=== PATIENT | female | born 1945 | race Two or more races ===

== ENCOUNTER 2021-02-26 15:27 | Emergency (ER) | payer MEDICARE, OTHER ==
[~2021-02-26] VITALS: Ht 167.6 cm; Wt 74.8 kg
[2021-02-26 16:40] LABS: Basophils # (auto) 0.1 10 ^3/uL (0-0.2); Basophils % (auto) 0.9 % (0.0-2.0); Eosinophils # (auto) 0.1 10 ^3/uL (0-0.8); Eosinophils % (auto) 0.9 % (0.0-7.0); Hematocrit 38.4 % (36.0-46.0); Hemoglobin 12.4 g/dL (12.2-16.2); Lymphocytes # (auto) 2.4 10 ^3/uL (0.4-5.4); Lymphocytes % (auto) 31.5 % (10.0-50.0); Mean Corpuscular Hemoglobin 27.3 pg (28.0-32.0); Mean Corpuscular Hgb Conc. 32.2 g/dL (32.0-36.0); Mean Corpuscular Volume 84.7 fL (80.0-100.0); Monocytes # (auto) 0.7 10 ^3/uL (0-1.3); Monocytes % (auto) 8.7 % (0.0-12.0); Neutrophils # (auto) 4.5 10 ^3/uL (1.6-8.6); Red Blood Cells 4.54 10^6/uL (4.0-5.20); Red Cell Distribution Width 17.8 % (11.8-14.3); White Blood Cell 7.7 10^3/uL (4.4-10.8)
[2021-02-26 16:57] LABS: Albumin 3.1 g/dL (3.4-5.0); BUN/Creatinine Ratio 18.7; Calcium 8.7 mg/dL (8.5-10.1); Potassium 3.7 mmol/L (3.5-5.1)
[2021-02-26 17:00] LABS: Bilirubin, Total 0.8 mg/dL (0.2-1.0)
[2021-02-26 18:22] LABS: Urine Bacteria NONE SEEN /hpf (None Seen); Urine Blood Negative /uL (Negative); Urine Specific Gravity 1.004 (1.001-1.035); Urine WBC <1 /hpf (0 - 5)
[2021-02-26] MEDS ORDERED: IOHEXOL 350 MG/ML 100ML IJ ONE (20:53)
[2021-02-26] MEDS ORDERED: hydrALAZINE HCL 20 MG/ML VL IV ONE (21:00)
[2021-02-27] MEDS ORDERED: hydrALAZINE HCL 20 MG/ML VL ONE (01:29)
[2021-02-27] MEDS ORDERED: ESMOLOL HCL-NS 10MG/ML 250 ML IV SCH (01:30)
[2021-02-27] MEDS ORDERED: hydrALAZINE HCL 20 MG/ML VL IV ONE (01:30)
[2021-02-27] MEDS ORDERED: dilTIAZem 125mg/125ml BAG KIT 125 ML IV ONE (02:30)
[2021-02-27 06:02] VITALS: BP 145/56
== END 2021-02-27 06:45 | disposition short-term general hospital (02) ==
LOC: EDBD 15:27 → ER 15:27
DX: S76.219A Strain of adductor muscle, fascia and tendon of unspecified thigh, initial encounter (principal); Z20.822 Contact with and (suspected) exposure to COVID-19; X58.XXXA Exposure to other specified factors, initial encounter; Y93.89 Activity, other specified; Y92.89 Other specified places as the place of occurrence of the external cause; Y99.8 Other external cause status
CPT/HCPCS: 36415; 71275; 74175; 74176; 80053; 81001; 84484; 85025; 86850; 86900; 86901; 87426; 93005; 96365; 96375; 96376; 99285; J0360; J3490; Q9967

== ENCOUNTER 2023-08-26 07:00 | Day surgery (SDC) | payer OTHER ==
[~2023-08-26] VITALS: Ht 152.4 cm; Wt 105.2 kg
[~2023-08-26 07:00] MED LIST: APIX5TAB PO; APOA10CA PO; ASPI81CH74 PO; ATOR40TA52 PO; B-CO1TAB8 PO; DOCU-94 PO; FERR325T24 PO; FLUT1AER3 IN; FURO40TA4 PO; MAGN400T40 PO; METH50006 SL; METO25TA5 PO; METO5TAB5 PO; MIRT-94 PO; MULT-1018 PO; POTA-220 PO; PREG200C19 PO; TRIA-49 PO
[2023-08-26] MEDS ORDERED: LIDOCAINE 2%HCL (LOCAL ANESTH.) INJ 20ML MDV ONE ×2 (07:44→07:46)
[2023-08-26] MEDS ORDERED: IOHEXOL 350 MG/ML 100ML IJ ONE ×2 (07:44→07:46)
[2023-08-26] MEDS ORDERED: HEPARIN IN NS 1000Units/500mL 1,500 ML ONE ×2 (07:45→07:46)
[2023-08-26] MEDS ORDERED: IODIXANOL 320MG/ML 100ML BTL IV ONE (07:45)
[2023-08-26] MEDS ORDERED: ANGIOMAX 250 MG VIAL IV ONE (08:06)
[2023-08-26] MEDS ORDERED: fentaNYL CITRATE 100 MCG/2 ML VL ONE (08:07)
[2023-08-26] MEDS ORDERED: NITROGLYCERIN 50MG/250ML 250 ML IV ONE (08:07)
[2023-08-26] MEDS ORDERED: SODIUM CHL 0.9% 0 ML ONE (08:07)
[2023-08-26] MEDS ORDERED: MIDAZOLAM HCL 2MG/2ML 2ml VIAL (1mg/ml) ONE (08:07)
[2023-08-26] MEDS: ACETAMINOPHEN 500 MG TAB PO ONE ×2 (12:00→12:15)
== END 2023-08-26 12:15 | disposition home or self-care (01) ==
LOC: CATH 07:00
PROVIDERS: ATTEND Internal Medicine Cardiovascular Disease
DX: R06.02 Shortness of breath (principal); I25.10 Atherosclerotic heart disease of native coronary artery without angina pectoris; I12.9 Hypertensive chronic kidney disease with stage 1 through stage 4 chronic kidney disease, or unspecified chronic kidney disease; N18.9 Chronic kidney disease, unspecified; J44.9 Chronic obstructive pulmonary disease, unspecified; G89.4 Chronic pain syndrome; E03.9 Hypothyroidism, unspecified; E78.5 Hyperlipidemia, unspecified; E66.9 Obesity, unspecified; I73.9 Peripheral vascular disease, unspecified; Z86.2 Personal history of diseases of the blood and blood-forming organs and certain disorders involving the immune mechanism; Z86.718 Personal history of other venous thrombosis and embolism; Z79.82 Long term (current) use of aspirin; Z87.891 Personal history of nicotine dependence; Z79.899 Other long term (current) drug therapy; Z98.890 Other specified postprocedural states
CPT/HCPCS: 93460; C1760; C1769; C1887; C1894; J1644; J2250; J3010; J7030; Q9967; 99152; 99153

== ENCOUNTER 2023-11-04 13:02 | Inpatient (IN) | payer OTHER ==
[~2023-11-04] VITALS: Ht 152.4 cm; Wt 107.4 kg
[~2023-11-04 13:02] MED LIST changes: -FLUT1AER3 IN; +FLUT1AER3 INH; +POTA-180 PO
[2023-11-04 13:26] VITALS: RESP 18; O2SAT 95
[2023-11-04 13:41] LABS: Basophils # (auto) 0.1 10 ^3/uL (0-0.2); Basophils % (auto) 0.8 % (0.0-2.0); Eosinophils # (auto) 0.2 10 ^3/uL (0-0.8); Eosinophils % (auto) 1.4 % (0.0-7.0); Hematocrit 31.1 % (36.0-46.0); Lymphocytes # (auto) 2.1 10 ^3/uL (0.4-5.4); Lymphocytes % (auto) 18.7 % (10.0-50.0); Mean Corpuscular Hemoglobin 25.5 pg (28.0-32.0); Mean Corpuscular Hgb Conc. 32.3 g/dL (32.0-36.0); Mean Corpuscular Volume 78.8 fL (80.0-100.0); Monocytes % (auto) 8.8 % (0.0-12.0); Neutrophils # (auto) 7.8 10 ^3/uL (1.6-8.6); Neutrophils % (auto) 70.3 % (37.0-80.0); Red Blood Cells 3.94 10^6/uL (4.0-5.20); Red Cell Distribution Width 20.5 % (11.8-14.3); White Blood Cell 11.1 10^3/uL (4.4-10.8)
[2023-11-04 13:48] LABS: Chloride 99 mmol/L (98-107); Potassium 3.4 mmol/L (3.5-5.1); Sodium 143 mmol/L (136-145)
[2023-11-04 13:49] LABS: Anion Gap 6 (5-15); Calcium 9.4 mg/dL (8.7-10.4); Carbon Dioxide 38 mmol/L (20-30)
[2023-11-04 13:54] LABS: BUN/Creatinine Ratio 32.6 (10.0-20.0); Blood Urea Nitrogen 44 mg/dL (9-23); Glucose 96 mg/dL (74-106)
[2023-11-04] MEDS ORDERED: DEXTROSE (50%) 50ML SYRG IV PRN (14:45)
[2023-11-04] MEDS ORDERED: FUROSEMIDE 20 MG/2 ML VIAL IV ONE (14:45)
[2023-11-04] MEDS ORDERED: DOCUSATE SOD 100 MG CAP PO PRN (14:45)
[2023-11-04] MEDS ORDERED: ACETAMINOPHEN 325 MG TAB PO PRN (14:45)
[2023-11-04] MEDS ORDERED: POTASSIUM CHL 20 Meq TABLET PO ONE (14:45)
[2023-11-04] MEDS ORDERED: NITROGLYCERIN 0.4 MG SL TAB SL PRN ×2 (15:15→15:30)
[2023-11-04] MEDS ORDERED: MORPHINE SULFATE INJ 2 MG/ml SYRG IV PRN (15:15)
[2023-11-04] MEDS ORDERED: ESTR1TAB86 VA (16:04)
[2023-11-04] MEDS ORDERED: PANT1INJ3 PO (16:04)
[2023-11-04] MEDS ORDERED: POTA-36 PO ×2 (16:04)
[2023-11-04] MEDS ORDERED: ACET250T20 PO (16:04)
[2023-11-04] MEDS: FUROSEMIDE 20 MG/2 ML VIAL IV ONE (16:30)
[2023-11-04] MEDS: POTASSIUM CHL 20 Meq TABLET PO ONE (16:31)
[2023-11-04] MEDS: InsuLIN REG 1unit/0.01ml Soln (100units/ml) SC SCH (17:00)
[2023-11-04] MEDS: ACCU-CHEK COMFORT CURVE STRIP VI SCH (17:23)
[2023-11-04] MEDS: ONDANSETRON HCL 4 MG/2 ML VIAL IV PRN (19:50)
[2023-11-04] MEDS: MORPHINE SULFATE INJ 2 MG/ml SYRG IV PRN (19:51)
[2023-11-04 20:00] VITALS: PULSE 53; RESP 17; O2SAT 96
[2023-11-04] MEDS: CARVEDILOL 3.125 MG TAB PO SCH (22:00)
[2023-11-04] MEDS: SODIUM CHLOR 0.9% PF (SALINE LOCK) 10ML VIAL/SYR IV SCH (22:34)
[2023-11-04] MEDS: ATORVASTATIN 20 MG TAB PO SCH (22:34)
[2023-11-04] MEDS ORDERED: ACET500T58 PO (22:42)
[2023-11-04] MEDS ORDERED: METO25TA93 PO (22:42)
[2023-11-04] MEDS ORDERED: FLUT1AER3 IN (22:42)
[2023-11-04] MEDS ORDERED: METH50006 SL (22:42)
[2023-11-04] MEDS ORDERED: MAGN400T40 PO (22:42)
[2023-11-05] MEDS: HYDROcodone-ACET 5/325MG TAB PO PRN (00:32)
[2023-11-05 05:00] VITALS: BP 135/42; PULSE 56; RESP 18; TEMP 98; O2SAT 94
[2023-11-05 06:44] LABS: Urine Bacteria MANY /hpf (None Seen); Urine Blood 2+ /uL (Negative); Urine Clarity Clear (Clear); Urine Color Light-Yellow (Yellow); Urine Mucus FEW (None Seen); Urine Protein, UAD Negative (Negative); Urine Specific Gravity 1.014 (1.001-1.035); Urine Urobilinogen Normal (Negative); Urine WBC 42 /hpf (0 - 5); Urine pH 5.5 (5.0-9.0)
[2023-11-05 08:00] VITALS: PULSE 55
[2023-11-05 08:54] VITALS: BP 146/90; PULSE 56; RESP 20; TEMP 98.2; O2SAT 92
[2023-11-05] MEDS: ASPirin 81 mg TAB PO SCH (10:08)
[2023-11-05] MEDS: MULTIPLE VITAMIN TAB PO SCH (10:08)
[2023-11-05] MEDS: cefTRIAXone 1GM/50ML D5W 50 ML IV SCH (10:09)
[2023-11-05] MEDS: FUROSEMIDE 20 MG/2 ML VIAL IV SCH (10:16)
[2023-11-05] MEDS ORDERED: ESTRADIOL VAGINAL 10 MCG PV PRN (11:15)
[2023-11-05] MEDS ORDERED: SEMA2INJ3 SC (11:27)
[2023-11-05 13:00] VITALS: BP 147/35; PULSE 58; RESP 18; TEMP 98.5; O2SAT 93
[2023-11-05 17:00] VITALS: BP 144/66; PULSE 72; RESP 20; TEMP 99.5; O2SAT 90
[2023-11-05] MEDS: MIRTAZAPINE 30 MG TAB PO SCH (18:39)
[2023-11-05 21:00] VITALS: BP 158/58; PULSE 73; RESP 16; TEMP 98.3; O2SAT 93
[2023-11-05] MEDS: APIXABAN 5 MG TAB PO SCH (21:18)
[2023-11-05] MEDS: FUROSEMIDE 40 MG TAB PO SCH (21:19)
[2023-11-05] MEDS: PREGABALIN CAPSULE 75 MG CAP PO SCH (21:44)
[2023-11-05] MEDS: POTASSIUM CHL 20 Meq TABLET PO SCH (21:44)
[2023-11-05] MEDS: Triazolam 0.25 MG PO SCH (21:49)
[2023-11-05] MEDS ORDERED: ATORVASTATIN 20 MG TAB PO SCH (22:00)
[2023-11-05] MEDS ORDERED: MAGNESIUM OXIDE 400 MG TAB PO SCH (22:00)
[2023-11-06] VITALS (8 sets, daily range): BP systolic 128–149; BP diastolic 37–63; PULSE 58–108; RESP 14–19; TEMP 97.9–99.1; O2SAT 91–98
[2023-11-06] MEDS: PANTOPRAZOLE 40 MG TAB PO SCH (05:54)
[2023-11-06 06:18] LABS: Alanine Aminotransferase 29 U/L (7-40); Alkaline Phosphatase 143 U/L (46-116); Anion Gap 8 (5-15); BUN/Creatinine Ratio 28.1 (10.0-20.0); Blood Urea Nitrogen 43 mg/dL (9-23); Calcium 9.6 mg/dL (8.7-10.4); Carbon Dioxide 37 mmol/L (20-30); Chloride 97 mmol/L (98-107); Glucose 139 mg/dL (74-106); Potassium 3.1 mmol/L (3.5-5.1); Sodium 142 mmol/L (136-145)
[2023-11-06 06:19] LABS: Albumin 3.7 g/dL (3.2-4.8); Aspartate Aminotransferase 36 U/L (13-40); Bilirubin, Total 0.6 mg/dL (0.2-1.0); Total Protein 6.5 g/dL (5.7-8.2)
[2023-11-06] MEDS: POTASSIUM EFFERVESENT TAB 25 MEQ GT ONE (06:45)
[2023-11-06] MEDS ORDERED: ASPirin 81 mg TAB PO SCH (10:00)
[2023-11-06] MEDS: APOAEQUORIN 10 MG PO SCH (10:00)
[2023-11-06] MEDS ORDERED: METOPROLOL SUCCINATE XL 50 MG TAB PO SCH (10:00)
[2023-11-06] MEDS ORDERED: BIOTIN PO SCH (10:00)
[2023-11-06] MEDS ORDERED: B COMPLEX PO SCH (10:00)
[2023-11-06] MEDS ORDERED: metOLazone 5 MG TAB PO SCH (10:00)
[2023-11-06] MEDS ORDERED: FOLIC ACI PO SCH (10:00)
[2023-11-06] MEDS ORDERED: OXYCODONE W/ ACETAMINOPHEN 5/325MG TABLET PO PRN (11:15)
[2023-11-06] MEDS: MAGNESIUM OXIDE 400 MG TAB PO SCH (11:42)
[2023-11-06] MEDS: MULTIPLE VITAMIN TAB PO SCH (11:43)
[2023-11-06] MEDS: METOPROLOL SUCCINATE XL 50 MG TAB PO ONE (12:37)
[2023-11-06] MEDS: OXYCODONE W/ ACETAMINOPHEN 5/325MG TABLET PO PRN (17:59)
[2023-11-06 22:16] LABS: Basophils # (auto) 0.1 10 ^3/uL (0-0.2); Eosinophils # (auto) 0.1 10 ^3/uL (0-0.8); Eosinophils % (auto) 0.7 % (0.0-7.0); Hemoglobin 9.5 g/dL (12.2-16.2); Lymphocytes % (auto) 14.8 % (10.0-50.0); Nucleated Red Blood Cells % 0.1 %
[2023-11-06 22:17] LABS: Basophils % (auto) 0.6 % (0.0-2.0); Hematocrit 28.7 % (36.0-46.0); Mean Corpuscular Hemoglobin 25.7 pg (28.0-32.0); Mean Corpuscular Hgb Conc. 33.1 g/dL (32.0-36.0); Mean Corpuscular Volume 77.7 fL (80.0-100.0); Monocytes # (auto) 1.2 10 ^3/uL (0-1.3); Monocytes % (auto) 9.2 % (0.0-12.0); Neutrophils # (auto) 9.9 10 ^3/uL (1.6-8.6); Neutrophils % (auto) 74.7 % (37.0-80.0); Red Cell Distribution Width 19.8 % (11.8-14.3); White Blood Cell 13.3 10^3/uL (4.4-10.8)
[2023-11-06 22:27] LABS: Chloride 94 mmol/L (98-107); Potassium 3.4 mmol/L (3.5-5.1); Sodium 136 mmol/L (136-145)
[2023-11-06 22:28] LABS: Anion Gap 5 (5-15); Calcium 9.4 mg/dL (8.7-10.4); Carbon Dioxide 37 mmol/L (20-30)
[2023-11-06 22:33] LABS: BUN/Creatinine Ratio 29.9 (10.0-20.0); Blood Urea Nitrogen 49 mg/dL (9-23); Glucose 166 mg/dL (74-106)
[2023-11-07] VITALS (8 sets, daily range): BP systolic 134–161; BP diastolic 31–55; PULSE 57–62; RESP 16–20; TEMP 97.8–99.6; O2SAT 93–96
[2023-11-07 08:45] LABS: Basophils # (auto) 0.1 10 ^3/uL (0-0.2); Eosinophils # (auto) 0.1 10 ^3/uL (0-0.8); Eosinophils % (auto) 0.9 % (0.0-7.0); Hemoglobin 9.7 g/dL (12.2-16.2); Lymphocytes # (auto) 1.9 10 ^3/uL (0.4-5.4); Lymphocytes % (auto) 13.6 % (10.0-50.0); Mean Corpuscular Hgb Conc. 33.3 g/dL (32.0-36.0); Monocytes # (auto) 1.2 10 ^3/uL (0-1.3); Monocytes % (auto) 8.6 % (0.0-12.0); Neutrophils # (auto) 10.3 10 ^3/uL (1.6-8.6); Neutrophils % (auto) 75.9 % (37.0-80.0); Red Blood Cells 3.72 10^6/uL (4.0-5.20); White Blood Cell 13.6 10^3/uL (4.4-10.8)
[2023-11-07 08:46] LABS: Red Cell Distribution Width 20.2 % (11.8-14.3)
[2023-11-07 09:03] LABS: Alanine Aminotransferase 32 U/L (7-40); Albumin 3.7 g/dL (3.2-4.8); Alkaline Phosphatase 135 U/L (46-116); Anion Gap 5 (5-15); Aspartate Aminotransferase 34 U/L (13-40); BUN/Creatinine Ratio 32.1 (10.0-20.0); Bilirubin, Total 0.5 mg/dL (0.2-1.0); Blood Urea Nitrogen 50 mg/dL (9-23); Calcium 9.4 mg/dL (8.7-10.4); Carbon Dioxide 36 mmol/L (20-30); Chloride 94 mmol/L (98-107); Glucose 152 mg/dL (74-106); Potassium 3.4 mmol/L (3.5-5.1); Sodium 135 mmol/L (136-145); Total Protein 6.7 g/dL (5.7-8.2)
[2023-11-07] MEDS: DOCUSATE SOD 100 MG CAP PO SCH (09:15)
[2023-11-07] MEDS: METOPROLOL SUCCINATE XL 50 MG TAB PO SCH (09:15)
[2023-11-07] MEDS: FERROUS SULFATE 325mg EC TAB PO SCH (09:16)
[2023-11-07] MEDS: CYCLOBENZAPRINE HCL 10 MG TAB PO PRN (09:16)
[2023-11-07] MEDS ORDERED: FUROSEMIDE 40 MG/4 ML VIAL IV ONE (14:45)
[2023-11-07] MEDS: POTASSIUM EFFERVESENT TAB 25 MEQ PO ONE (19:14)
[2023-11-08] VITALS (8 sets, daily range): BP systolic 133–156; BP diastolic 33–57; PULSE 51–63; RESP 17–19; TEMP 97.6–98.8; O2SAT 92–95
[2023-11-08 00:28] LABS: Sodium Urine < 10 mmol/L (40-220)
[2023-11-08 00:33] LABS: Protein, Urine 42.5 mg/dL (0.0-11.9)
[2023-11-08 00:34] LABS: Urine Bacteria FEW /hpf (None Seen); Urine Blood 2+ /uL (Negative); Urine Clarity Clear (Clear); Urine Color Light-Yellow (Yellow); Urine Hyaline Cast FEW /lpf (0 - 2); Urine Protein, UAD TRACE (Negative); Urine Specific Gravity 1.014 (1.001-1.035); Urine Urobilinogen Normal (Negative); Urine WBC 11 /hpf (0 - 5); Urine pH 5.5 (5.0-9.0)
[2023-11-08 00:35] LABS: Creatinine, Urine 82.97 mg/dL (30.0-125.0)
[2023-11-08 06:09] LABS: Anion Gap 5 (5-15); Carbon Dioxide 36 mmol/L (20-30); Chloride 94 mmol/L (98-107); Potassium 3.4 mmol/L (3.5-5.1); Sodium 135 mmol/L (136-145)
[2023-11-08 06:10] LABS: Calcium 9.4 mg/dL (8.7-10.4)
[2023-11-08 06:15] LABS: Blood Urea Nitrogen 51 mg/dL (9-23); Glucose 112 mg/dL (74-106)
[2023-11-08 06:17] LABS: Phosphorus 4.1 mg/dL (2.4-5.1)
[2023-11-08 07:11] LABS: Uric Acid 14.1 mg/dL (3.1-7.8)
[2023-11-08] MEDS: FUROSEMIDE 40 MG/4 ML VIAL IV SCH (10:20)
[2023-11-08] MEDS: POTASSIUM CHLORIDE 40 MEQ, LIDOCAINE 1% (LOCAL ANESTH.) 4 ML in SODIUM CHL 0.9% 250 ML IV ONE (13:58)
[2023-11-08] MEDS: HYDROcodone-ACET 5/325MG TAB PO PRN (17:31)
[2023-11-08] MEDS: MIRTAZAPINE 30 MG TAB PO SCH (20:47)
[2023-11-08] MEDS: OXYCODONE W/ ACETAMINOPHEN 5/325MG TABLET PO SCH (21:30)
[2023-11-08] MEDS: FLEET ENEMA(ADULT) 135 ML PR ONE (21:31)
[2023-11-08 21:52] LABS: Urine Bacteria FEW /hpf (None Seen); Urine Blood 2+ /uL (Negative); Urine Clarity Clear (Clear); Urine Color Light-Yellow (Yellow); Urine Protein, UAD TRACE (Negative); Urine Specific Gravity 1.014 (1.001-1.035); Urine Urobilinogen Normal (Negative); Urine WBC 6 /hpf (0 - 5); Urine pH 5.5 (5.0-9.0)
[2023-11-08 21:59] LABS: Sodium Urine < 10 mmol/L (40-220)
[2023-11-08 22:03] LABS: Protein, Urine 45.1 mg/dL (0.0-11.9)
[2023-11-08 22:06] LABS: Creatinine, Urine 71.49 mg/dL (30.0-125.0)
[2023-11-09] VITALS (8 sets, daily range): BP systolic 120–169; BP diastolic 32–44; PULSE 57–60; RESP 16–19; TEMP 97.9–98.4; O2SAT 90–95
[2023-11-09 06:09] LABS: Basophils # (auto) 0.1 10 ^3/uL (0-0.2); Eosinophils # (auto) 0.2 10 ^3/uL (0-0.8); Eosinophils % (auto) 1.8 % (0.0-7.0); Lymphocytes % (auto) 14.3 % (10.0-50.0); Nucleated Red Blood Cells % 0.1 %
[2023-11-09 06:11] LABS: Basophils % (auto) 0.7 % (0.0-2.0); Hematocrit 29.6 % (36.0-46.0); Hemoglobin 9.6 g/dL (12.2-16.2); Lymphocytes # (auto) 1.4 10 ^3/uL (0.4-5.4); Mean Corpuscular Hemoglobin 25.3 pg (28.0-32.0); Mean Corpuscular Hgb Conc. 32.5 g/dL (32.0-36.0); Mean Corpuscular Volume 77.8 fL (80.0-100.0); Monocytes % (auto) 10.1 % (0.0-12.0); Neutrophils # (auto) 7.1 10 ^3/uL (1.6-8.6); Neutrophils % (auto) 73.1 % (37.0-80.0); Red Blood Cells 3.81 10^6/uL (4.0-5.20); Red Cell Distribution Width 19.7 % (11.8-14.3); White Blood Cell 9.7 10^3/uL (4.4-10.8)
[2023-11-09 06:17] LABS: Anion Gap 8 (5-15); Calcium 9.4 mg/dL (8.7-10.4); Carbon Dioxide 35 mmol/L (20-30); Chloride 94 mmol/L (98-107); Potassium 3.4 mmol/L (3.5-5.1); Sodium 137 mmol/L (136-145)
[2023-11-09 06:22] LABS: Uric Acid 13.9 mg/dL (3.1-7.8)
[2023-11-09 06:23] LABS: BUN/Creatinine Ratio 37.5 (10.0-20.0); Blood Urea Nitrogen 48 mg/dL (9-23); Glucose 110 mg/dL (74-106)
[2023-11-09 06:25] LABS: Phosphorus 5.4 mg/dL (2.4-5.1)
[2023-11-09] MEDS ORDERED: IOHEXOL 350 MG/ML 100ML IJ ONE (10:20)
[2023-11-10] VITALS (8 sets, daily range): BP systolic 111–133; BP diastolic 30–48; PULSE 53–59; RESP 18–20; TEMP 97.9–98.8; O2SAT 90–96
[2023-11-10 07:17] LABS: Basophils # (auto) 0.1 10 ^3/uL (0-0.2); Basophils % (auto) 0.9 % (0.0-2.0); Eosinophils # (auto) 0.2 10 ^3/uL (0-0.8); Eosinophils % (auto) 2.5 % (0.0-7.0); Hematocrit 27.4 % (36.0-46.0); Hemoglobin 8.9 g/dL (12.2-16.2); Lymphocytes # (auto) 1.5 10 ^3/uL (0.4-5.4); Lymphocytes % (auto) 15.5 % (10.0-50.0); Mean Corpuscular Hemoglobin 25.5 pg (28.0-32.0); Mean Corpuscular Hgb Conc. 32.6 g/dL (32.0-36.0); Monocytes # (auto) 0.9 10 ^3/uL (0-1.3); Monocytes % (auto) 8.9 % (0.0-12.0); Neutrophils # (auto) 6.9 10 ^3/uL (1.6-8.6); Neutrophils % (auto) 72.2 % (37.0-80.0); Nucleated Red Blood Cells % 0.1 %; Red Blood Cells 3.52 10^6/uL (4.0-5.20); Red Cell Distribution Width 19.6 % (11.8-14.3); White Blood Cell 9.6 10^3/uL (4.4-10.8)
[2023-11-10 07:53] LABS: Chloride 97 mmol/L (98-107); Potassium 3.5 mmol/L (3.5-5.1); Sodium 136 mmol/L (136-145)
[2023-11-10 07:54] LABS: Anion Gap 3 (5-15); Carbon Dioxide 36 mmol/L (20-30)
[2023-11-10 07:55] LABS: Calcium 9.5 mg/dL (8.7-10.4)
[2023-11-10 07:59] LABS: Glucose 109 mg/dL (74-106)
[2023-11-10 08:00] LABS: BUN/Creatinine Ratio 36.9 (10.0-20.0); Blood Urea Nitrogen 52 mg/dL (9-23)
[2023-11-10] MEDS: ALLOPURINOL 100 MG TAB PO ONE (17:32)
[2023-11-11] VITALS (7 sets, daily range): BP systolic 108–150; BP diastolic 51–85; PULSE 51–81; RESP 16–20; TEMP 97.7–98.4; O2SAT 90–99
[2023-11-11 06:59] LABS: Magnesium 2.5 mg/dL (1.6-2.6); Phosphorus 4.4 mg/dL (2.4-5.1)
[2023-11-11 07:49] LABS: Alanine Aminotransferase 41 U/L (7-40); Albumin 3.1 g/dL (3.2-4.8); Alkaline Phosphatase 181 U/L (46-116); Anion Gap 4 (5-15); Aspartate Aminotransferase 39 U/L (13-40); BUN/Creatinine Ratio 44.8 (10.0-20.0); Bilirubin, Total 0.2 mg/dL (0.2-1.0); Calcium 9.1 mg/dL (8.7-10.4); Carbon Dioxide 35 mmol/L (20-30); Chloride 98 mmol/L (98-107); Glucose 104 mg/dL (74-106); Sodium 137 mmol/L (136-145); Total Protein 5.4 g/dL (5.7-8.2)
[2023-11-11 07:50] LABS: Blood Urea Nitrogen 65 mg/dL (9-23)
[2023-11-11] MEDS: ALLOPURINOL 100 MG TAB PO SCH (08:39)
[2023-11-11] MEDS: amLODIPine BESYLATE 5 MG TAB PO SCH (11:48)
== END 2023-11-11 17:30 | DRG 291 ==
LOC: ER 13:02 → EDBD 13:02 → ER 15:14 → TELE 15:14 → TELE-WESTW 22:10
PROVIDERS: ADMIT Internal Medicine Geriatric Medicine; ATTEND Internal Medicine Geriatric Medicine
DX: I13.0 Hypertensive heart and chronic kidney disease with heart failure and stage 1 through stage 4 chronic kidney disease, or unspecified chronic kidney disease (principal); I50.33 Acute on chronic diastolic (congestive) heart failure; N39.0 Urinary tract infection, site not specified; Z68.41 Body mass index [BMI] 40.0-44.9, adult; J98.11 Atelectasis; N17.9 Acute kidney failure, unspecified; M16.0 Bilateral primary osteoarthritis of hip; D64.9 Anemia, unspecified; E87.6 Hypokalemia; D72.829 Elevated white blood cell count, unspecified; E66.01 Morbid (severe) obesity due to excess calories; N31.9 Neuromuscular dysfunction of bladder, unspecified; M51.36 Other intervertebral disc degeneration, lumbar region; J44.9 Chronic obstructive pulmonary disease, unspecified; E11.51 Type 2 diabetes mellitus with diabetic peripheral angiopathy without gangrene; E78.5 Hyperlipidemia, unspecified; E03.9 Hypothyroidism, unspecified; G89.4 Chronic pain syndrome; I25.10 Atherosclerotic heart disease of native coronary artery without angina pectoris; E11.22 Type 2 diabetes mellitus with diabetic chronic kidney disease; N18.32 Chronic kidney disease, stage 3b; I27.20 Pulmonary hypertension, unspecified; E79.0 Hyperuricemia without signs of inflammatory arthritis and tophaceous disease; Z79.899 Other long term (current) drug therapy; Z79.85 Long-term (current) use of injectable non-insulin antidiabetic drugs; Z79.01 Long term (current) use of anticoagulants; Z86.718 Personal history of other venous thrombosis and embolism
CPT/HCPCS: 36415; 71045; 71275; 72131; 73502; 80048; 80053; 81001; 82306; 82570; 82962; 83036; 83735; 83880; 84100; 84156; 84300; 84484; 84550; 85025; 85379; 87086; 93306; 93970; 96374; 96375; 97163; G0378; J2001; J2405

== ENCOUNTER 2024-08-13 11:08 | Inpatient (IN) | payer OTHER ==
[~2024-08-13] VITALS: Ht 152.4 cm; Wt 97.7 kg
[~2024-08-13 11:08] MED LIST changes: +ACET500T58 PO; +ESTR1TAB86 VA; -METO25TA5 PO; +METO25TA93 PO; +PANT1INJ3 PO; -POTA-220 PO; +SEMA2INJ3 SC
[2024-08-13 13:36] VITALS: PULSE 47; RESP 20; O2SAT 93
--- NOTE | 2024-08-13 13:50 | ED.PDOC ---
Epistaxis- HPI HPI Comments 78 y/o F, with PMHx of gout, HLD, DM, HTN, and CHF presents to the ED for CC of uncontrolled epistaxis. Patient states, that she has been bleeding from her right nare since, 0900 today (08/13/24). Patient reports, that she spoke to her director of audiology regarding symptoms and was instructed to follow up to the ED for a further evaluation due, to currently being on Eliquis. Upon arrival to the ED, patient is bradycardic. Patient denies current active bleeding, headache, fever, or chills. No other symptoms or modifying factors present at this time. Chief Complaint: Nose Bleed Time Seen by MD: 12:30 Reviewed Notes: Nurses Notes, Medications, Allergies Allergies: Coded Allergies: UNOBTAINABLE (Unverified , 08/13/24) Home Meds Reported Medications Semaglutide (Ozempic) 2 Mg/3 Ml Inj, MG SC UD Inject 0.25 mg subcutaneously every week for 4 weeks, then increase to 0.5 mg every week for 4 weeks. 11/05/23 Potassium Chloride (Potassium Chloride ER) 20 Meq Tab, MEQ PO UD Take 1 tablet by mouth in the morning, 2 tablets by mouth in the afternoon, and 1 tablet by mouth in the evening. 11/05/23 Acetaminophen (Acetaminophen) 500 Mg Tab, 500 MG PO Q6HPRN PRN for PAIN SCALE 1 THRU 6, TAB 11/04/23 Metoprolol Succinate (Metoprolol Succinate Er) 25 Mg Tab, 1 TAB PO DAILY, #30 TAB 5 Refills 11/04/23 Mecobalamin (B12) 5,000 Mcg Sub, 5000 MCG SL, INJ 11/04/23 Estradiol Vaginal (Yuvafem) 10 Mcg Tab, 10 MCG VA MT PRN for 2XWEEK, TAB 11/04/23 Pantoprazole Sodium (PANTOPRAZOLE SODIUM) 40 Mg Inj, 40 MG PO DAILY, INJ 11/04/23 Atorvastatin Calcium (ATORVASTATIN CALCIUM) 40 Mg Tab, 1 TAB PO QPM, #90 TAB 3 Refills 08/22/23 Multiple Vitamin (Multivitamins) Tab, 1 TAB PO DAILY, #90 TAB 3 Refills 08/22/23 B-Complex W/Biotin & Folic Aci (Super B-Complex) 1 Tab Tab, 1 TAB PO DAILY, TAB 08/22/23 Apoaequorin (PREVAGEN) 10 Mg Cap, 10 MG PO DAILY, CAP 08/22/23 Mirtazapine (REMERON) 30 Mg Tab, 1 TAB PO QPM, #30 TAB 1 Refill 08/22/23 Triazolam (Triazolam) 0.25 Mg Tab, 0.25 MG PO HS, TAB 08/22/23 Ferrous Sulfate (Ferrous Sulfate) 325 Mg Tab, 325 MG PO MWF for 30 Days 08/22/23 Docusate Sodium (Colace) 100 Mg Cap, 100 MG PO MWF, CAP 08/22/23 Magnesium Oxide (MAGNESIUM OXIDE) 400 Mg Tab, 1 TAB PO DAILY, #30 TAB 5 Refills 08/22/23 Apixaban Base (ELIQUIS) 5 Mg Tab, 5 MG PO BID, TAB 08/22/23 Xkvokmmobog-Jhstkezpblqq-Btxxv (Trelegy Ellipta 100-62.5-25 Mcg/INH) 1 Aer Aer, 1 PUFF INH DAILY 08/22/23 Metolazone (Metolazone) 5 Mg Tab, 5 MG PO DAILY, TAB 08/22/23 Furosemide (Furosemide) 40 Mg Tab, 40 MG PO BID for 30 Days 08/22/23 Aspirin (Aspirin 81 Low Dose) 81 Mg Chw, 81 MG PO DAILY, TAB.CHEW 08/22/23 Pregabalin (Lyrica) 200 Mg Cap, 1 CAP PO BID, #60 CAP 08/22/23 Information Source: Patient, Significant Other Mode of Arrival: Ambulatory Severity: Bleeding Controlled Timing: Hours Duration: Since onset Prehospital treatment: None Location: Right naris Mechanism: Spontaneous onset Circumstances: Unknown Use of: None History of: HTN Last Tetanus: Unknown Nose: Normal Bleeding Status: No active bleeding Bleeding Amount: Mild Associated signs and symptoms: None Past Medical History PAST MEDICAL HISTORY: CHF, DM, Gout, High Lipids, HTN Surgical History: Denies all surgeries RIB CLOTH KNITTER History: No Pertinent RIB CLOTH KNITTER History Family History Family History: Reviewed,noncontributory to illness Social History Smoker: Non-Smoker Alcohol: Denies ETOH Use Drugs: Denies Drug Use Lives In: Home Constitutional: reports: chills, diaphoresis, fatigue, fever, malaise, sweats, weakness, others EENTM: reports: nose bleeding; denies: blurred vision, double vision, ear bleeding, ear discharge, ear drainage, ear pain, ear ringing, eye pain, eye redness, hearing loss, mouth pain, mouth swelling, nasal discharge, nose congestion, nose pain, photophobia, tearing, throat pain, throat swelling, voice changes, others Respiratory: denies: cough, hemoptysis, orthopnea, SOB at rest, shortness of breath, SOB with excertion, stridor, wheezing, others Cardiovascular: denies: chest pain, dizzy spells, diaphoresis, Dyspnea on exertion, edema, irregular heart beat, left arm pain, lightheadedness, palpitations, PND, syncope, others Gastrointestinal: denies: abdomen distended, abdominal pain, blood streaked bowels, constipated, diarrhea, dysphagia, difficulty swallowing, hematemesis, melena, nausea, poor appetite, poor fluid intake, rectal bleeding, rectal pain, vomiting, others Genitourinary: denies: abnormal vagina bleeding, burning, dyspareunia, dysuria, flank pain, frequency, hematuria, incontinence, pain, , vagina discharge, urgency, others Neurological: denies: dizziness, fainting, headache, left sided numbness, left sided weakness, numbness, paresthesia, pre-existing deficit, right sided numbness, right sided weakness, seizure, speech problems, tingling, tremors, weakness, others Musculoskeletal: denies: back pain, gout, joint pain, joint swelling, muscle pain, muscle stiffness, neck pain, others Integumetry: denies: bruises, change in color, change in hair/nails, dryness, laceration, lesions, lumps, rash, wounds, others Allergic/Immunocompromised: denies: Difficulty Healing, Frequent Infections, Hives, Itching, others Hematologic/Lymphatic: denies: anemia, blood clots, easy bleeding, easy bruising, swollen glands, others Endocrine: denies: excessive hunger, excessive sweating, excessive thirst, excessive urination, flushing, intolerance to cold, intolerance to heat, unexplained weight gain, unexplained weight loss, others Psychiatric: denies: anxiety, bipolar disorder, depression, hopeless, panic disorder, schizophrenia, sleepless, suicidal, others All Other Systems: Reviewed and Negative Physical Exam General Appearance: Moderate Distress HEENT: Normal ENT Inspection, Pharynx Normal, TMs Normal Neck: Full Range of Motion, Non-Tender, Normal, Normal Inspection Respiratory: Chest Non-Tender, Lungs Clear, No Accessory Muscle Use, No Respiratory Distress, Normal Breath Sounds Cardiovascular: Bradycardia, No Edema, No JVD, No Murmur, No Gallop, Normal Peripheral Pulses Breast Exam: Deferred Gastrointestinal: No Organomegaly, Non Tender, No Pulsatile Mass, Normal Bowel Sounds, Soft Genitalia: Deferred Pelvic: Deferred Rectal: Deferred Extremities: No calf tenderness, Normal capillary refill, Normal inspection, Normal range of motion, Non-tender, No pedal edema Musculoskeletal : Apperance: Normal Neurologic: Alert, jute bag clipper II-XII nml as Tested, No Motor Deficits, Normal Affect, Normal Mood, No Sensory Deficits Cerebellar Function: NOT DONE Reflexes: NOT DONE Skin: Dry, Normal Color, Warm Peripheral Pulses: 3+ Radial (R), 3+ Radial (L) Lymphatic: No Adenopathy Was a procedure done? Was a procedure done?: No Differential Diagnosis (NSB) Differential Diagnosis: Anterior Nasal Bleed, Posterior Nasal Bleed X-Ray, Labs, Meds, VS Vital Signs Date Time Temp Pulse Resp B/P (MAP) Pulse Ox O2 Delivery O2 Flow Rate FiO2 08/13/24 16:00 97.8 49 18 128/41 (70) 94 97.8 08/13/24 14:00 49 18 133/40 (71) 98 08/13/24 13:46 93 Simple Mask* 6 50 08/13/24 13:36 47 20 93 Simple Mask* 6 50 08/13/24 13:18 46 08/13/24 13:00 48 18 127/41 (69) 95 08/13/24 12:06 Simple Mask* 6 50 08/13/24 12:00 97.7 50 18 126/41 (69) 93 97.7 08/13/24 11:40 98.1 50 18 113/40 (64) 87 98.1 Lab Test 08/13/24 15:09 08/13/24 13:54 Range/Units Troponin I High Sensitivity 6 6 </=34 ng/L White Blood Count 8.1 4.4-10.8 10^3/uL Red Blood Count 4.06 4.0-5.20 10^6/uL Hemoglobin 10.6 L 12.2-16.2 g/dL Hematocrit 32.0 L 36.0-46.0 % Mean Corpuscular Volume 78.9 L 80.0-100.0 fL Mean Corpuscular Hemoglobin 26.1 L 28.0-32.0 pg Mean Corpuscular Hemoglobin Concent 33.0 32.0-36.0 g/dL Red Cell Distribution Width 22.0 H 11.8-14.3 % Platelet Count 290 140-450 10^3/uL Mean Platelet Volume 6.8 L 6.9-10.8 fL Neutrophils (%) (Auto) 66.2 37.0-80.0 % Lymphocytes (%) (Auto) 22.5 10.0-50.0 % Monocytes (%) (Auto) 7.8 0.0-12.0 % Eosinophils (%) (Auto) 2.3 0.0-7.0 % Basophils (%) (Auto) 1.2 0.0-2.0 % Neutrophils # (Auto) 5.3 1.6-8.6 10 ^3/uL Lymphocytes # (Auto) 1.8 0.4-5.4 10 ^3/uL Monocytes # (Auto) 0.6 0-1.3 10 ^3/uL Eosinophils # (Auto) 0.2 0-0.8 10 ^3/uL Basophils # (Auto) 0.1 0-0.2 10 ^3/uL Nucleated Red Blood Cells 0.0 % Prothrombin Time 11.9 H 9.3-11.8 sec Prothrombin Time INR 1.14 0.9-1.15 Activated Partial Thromboplast Time 35.0 H 24.5-34.5 SEC Sodium Level 144 136-145 mmol/L Potassium Level 3.2 L 3.5-5.1 mmol/L Chloride Level 101 98-107 mmol/L Carbon Dioxide Level 35 H 20-31 mmol/L Anion Gap 8 5-15 Blood Urea Nitrogen 48 H 9-23 mg/dL Creatinine 1.42 H 0.550-1.02 mg/dL Glomerular Filtration Rate Calc 37 >90 mL/min BUN/Creatinine Ratio 33.8 H 10.0-20.0 Serum Glucose 94 74-106 mg/dL Calcium Level 10.2 8.7-10.4 mg/dL Patient alert. Complaining of nosebleed. She is on blood thinner. Answering questions. Bradycardia. Mild anemia. Cardiac marker within normal limits. Cardiology consultation. Potassium was given. Reviewed her history. Explained to the family. Continue monitoring. Time of 1ST Reevaluation: 13:00 Reevaluation 1ST: Unchanged Patient Education/Counseling: Diagnosis, Treatment Family Education/Counseling: No Family Present Departure 1 Departure Time of Disposition: 16:53 Impression: Primary Impression: Bradycardia Additional Impression: Epistaxis Disposition: ADMITTED INPATIENT Admit to: Med Surg Condition: Guarded Critical Care Note Critical Care Time?: No Stability Stability form required: No Heart Score Heart Score: Heart Score Response (Comments) Value History Slightly Suspicious 0 EKG Normal 0 Age >65 2 Risk Factors >3 or Hx ASHD 2 Troponin Normal limit 0 Total 4 I personally scribed for ZEINA GONZALEZ MD ([email or web address]) on 08/13/24 at 13:50. Electronically submitted by Jenny Eric [email or web address]). ZEINA GONZALEZ MD August 13, 2024 13:50
[2024-08-13 14:08] LABS: Basophils # (auto) 0.1 10 ^3/uL (0-0.2); Basophils % (auto) 1.2 % (0.0-2.0); Eosinophils # (auto) 0.2 10 ^3/uL (0-0.8); Mean Corpuscular Volume 78.9 fL (80.0-100.0); Monocytes # (auto) 0.6 10 ^3/uL (0-1.3); Neutrophils # (auto) 5.3 10 ^3/uL (1.6-8.6); White Blood Cell 8.1 10^3/uL (4.4-10.8)
[2024-08-13 14:10] LABS: Eosinophils % (auto) 2.3 % (0.0-7.0); Hemoglobin 10.6 g/dL (12.2-16.2); Lymphocytes # (auto) 1.8 10 ^3/uL (0.4-5.4); Lymphocytes % (auto) 22.5 % (10.0-50.0); Mean Corpuscular Hemoglobin 26.1 pg (28.0-32.0); Monocytes % (auto) 7.8 % (0.0-12.0); Neutrophils % (auto) 66.2 % (37.0-80.0); Platelet Count (auto) 290 10^3/uL (140-450); Red Blood Cells 4.06 10^6/uL (4.0-5.20)
[2024-08-13 14:16] LABS: Chloride 101 mmol/L (98-107); Sodium 144 mmol/L (136-145)
[2024-08-13 14:17] LABS: Anion Gap 8 (5-15); Calcium 10.2 mg/dL (8.7-10.4)
[2024-08-13 14:21] LABS: Carbon Dioxide 35 mmol/L (20-31); Potassium 3.2 mmol/L (3.5-5.1)
[2024-08-13 14:22] LABS: BUN/Creatinine Ratio 33.8 (10.0-20.0); Glucose 94 mg/dL (74-106)
[2024-08-13 14:23] LABS: INR 1.14 (0.9-1.15); Prothrombin Time 11.9 sec (9.3-11.8)
[2024-08-13 14:26] LABS: Blood Urea Nitrogen 48 mg/dL (9-23)
[2024-08-13] MEDS: POTASSIUM EFFERVESENT TAB 25 MEQ PO ONE (17:00)
[2024-08-13 19:00] LABS: Urine Bacteria None Seen /hpf (None Seen)
[2024-08-13 19:16] LABS: Urine Blood Negative /uL (Negative); Urine Clarity Turbid (Clear); Urine Color Light-Yellow (Yellow); Urine Hyaline Cast FEW /lpf (0 - 2); Urine Protein, UAD Negative (Negative); Urine Specific Gravity 1.008 (1.001-1.035); Urine Squamous Epithelial Cell FEW /hpf (<5); Urine Urobilinogen Normal (Negative); Urine WBC 132 /HPF (0-5)
[2024-08-13 19:35] VITALS: PULSE 49; RESP 20; O2SAT 98
[2024-08-13] MEDS ORDERED: HYDROcodone-ACET 5/325MG TAB PO PRN (21:45)
[2024-08-13] MEDS ORDERED: DEXTROSE (50%) 50ML SYRG IV PRN (21:45)
[2024-08-13] MEDS ORDERED: DOCUSATE SOD 100 MG CAP PO PRN (21:45)
[2024-08-13] MEDS ORDERED: ACCU-CHEK COMFORT CURVE STRIP VI SCH (22:00)
[2024-08-13] MEDS ORDERED: InsuLIN REG 1unit/0.01ml Soln (100units/ml) SC SCH (22:00)
[2024-08-13] MEDS: SODIUM CHLOR 0.9% PF (SALINE LOCK) 10ML VIAL/SYR IV SCH (22:10)
[2024-08-13] MEDS: cefTRIAXone 1GM/50ML D5W 50 ML IV ONE (22:24)
[2024-08-13] MEDS: ATORVASTATIN 20 MG TAB PO SCH (22:31)
[2024-08-13] MEDS: FAMOTIDINE (10MG/ML) 2ML VL IV SCH (22:31)
[2024-08-13] MEDS: ACETAMINOPHEN 325 MG TAB PO PRN (22:58)
--- NOTE | 2024-08-13 23:24 | DVHHP2 ---
History of Present Illness Reason for Visit: Bradycardia History of Present Illness The patient is a 78-year-old female with past medical history of GERD, hypertension, hyperlipidemia, borderline DM, and congestive heart failure who presented to [facility] ED with complaint of uncontrolled epistaxis. Patient states, that she has been bleeding from her right nare since morning (08/13/24). Patient reports, that she spoke to her pulmonary function technician regarding symptoms and was instructed to follow up to the ED for a further evaluation due, to currently being on Eliquis. Patient was seen and evaluated in the ED, laboratory data shows WBC 8.1, hemoglobin 10.6, hematocrit 32.0, platelets 290, sodium 144, potassium 3.2, BUN 48, creatinine 1.42, glucose 94, troponin 6, blood pressure 128/80, heart rate 49, temperature 97.6 F, O2 saturation 98% on oxygen. Urinalysis positive for urinary tract infection. Patient was started on IV antibiotic regimen Rocephin, please see medication orders section in the computer. On my assessment, patient denies chest pain, no headache, no dizziness, no diaphoresis, no shortness of breaths, no nausea, no vomiting, no fever, no chills. Patient was admitted for further evaluation and medical management. Past Medical History CHF, DM, Gout, High Lipids, HTN Past Surgical History Right and left heart catheterization and bilateral coronary angiogram Family History Reviewed, noncontributory to the management of this case. Past Social History The patient lives at home, denies smoking, alcohol or illicit drugs abuse. Review of Systems Constitutional: Yes: Weakness; No: Fever, Chills, Sweats, Malaise, Other Eyes: No: Pain, Vision change, Conjunctivae inflammation, Eyelid inflammation, Other, Redness ENT: Nose discharge (Nosebleed); No: Ear pain, Ear discharge, Nose pain, Nose congestion, Mouth pain, Mouth swelling, Throat pain, Throat swelling, Other Respiratory: No: Cough, Dry, Shortness of breath, SOB with excertion, Wheezing, Hemoptysis, Pleuritic Pain, Sputum, Wheezing, Other Cardiovascular: No: Chest Pain, Palpitations, Orthopnea, Paroxysmal Noc. Dyspnea, Edema, Lt Headedness, Other Gastrointestinal: No: Nausea, Vomiting, Abdominal Pain, Diarrhea, Constipation, Melena, Hematochezia, Other Genitourinary: No Dysuria, No Frequency, No Incontinence, No Hematuria, No Retention, No Other Musculoskeletal: No: other, neck pain, shoulder pain, arm pain, back pain, hand pain, leg pain, foot pain Skin: No: Rash, Lesions, Jaundice, Bruising, Other Neurological: No: Weakness, Numbness, Incoordination, Change in speech, Confusion, Seizures, Other Allergies: Coded Allergies: Benzalkonium Chloride (Verified Allergy, Severe, 08/13/24) Edetic Acid (Verified Allergy, Severe, 08/13/24) Tiotropium (Verified Allergy, Severe, 08/13/24) Medications Current Medications Medications Dose Ordered Sig/Eulalia Route Start Time Stop Time Status Last Admin Dose Admin Aspirin 81 mg DAILY PO 08/14/24 10:00 Atorvastatin Calcium 20 mg HS PO 08/13/24 22:00 08/13/24 22:31 20 MG Ceftriaxone Sodium 50 ml @ 100 mls/hr DAILY@09 IV 08/14/24 09:00 Famotidine 20 mg Q12HR IV 08/13/24 22:00 08/13/24 22:31 20 MG Dextrose 50 ml UD PRN IV 08/13/24 21:45 Sodium Chloride 10 ml Q8HR IV 08/13/24 22:00 08/13/24 22:10 10 ML Acetaminophen/ Hydrocodone Bitart 1 tab Q4HP PRN PO 08/13/24 21:45 Ondansetron HCl 4 mg Q4HP PRN IV 08/13/24 21:45 Docusate Sodium 100 mg BIDPRN PRN PO 08/13/24 21:45 Acetaminophen 650 mg Q6HP PRN PO 08/13/24 21:45 08/13/24 22:58 650 MG Exam Vital Signs Vital Signs Date Time Temp Pulse Resp B/P (MAP) Pulse Ox O2 Delivery O2 Flow Rate FiO2 08/13/24 22:58 97.5 08/13/24 20:00 49 19 128/80 (96) 100 08/13/24 19:35 Simple Mask* 6 50 General Appearance: Alert, Oriented X3, Cooperative, No acute distress HEENT: PERRLA, EOMI, Mucous membr. moist/pink Respiratory: Clear to auscultation, Normal air movement Cardiovascular: Regular rate, Normal S1, Normal S2, No murmurs Abdominal: Normal bowel sounds, Soft, No tenderness, No hepatospenomegaly, No masses Extremities: No clubbing, No cyanosis, No edema, Normal pulses, No tenderness/swelling Skin: No rashes, No breakdown, No significant lesion Neuro: Normal speech, Normal tone, Sensation intact, Cranial nerves 3-12 NL, Reflexes 2+, Other (Generalized weakness) Psych/Mental Status: Mental status NL, Mood NL Labs/Xrays Labs Test 08/13/24 18:50 08/13/24 15:09 08/13/24 13:54 Range/Units Urine Color Light-yellow Yellow Urine Clarity Turbid H Clear Urine pH 6.0 5.0-9.0 Urine Specific [place] 1.008 1.001-1.035 Urine Protein Negative Negative Urine Ketones Negative Negative Urine Blood Negative Negative /uL Urine Nitrite Negative Negative Urine Bilirubin Negative Negative Urine Urobilinogen Normal Negative mg/dL Urine Leukocyte Esterase 3+ Negative /uL Urine RBC 3 0 - 4 /hpf Urine Microscopic WBC 132 H 0-5 /HPF Urine Squamous Epithelial Cells Few <5 /hpf Urine Bacteria None seen None Seen /hpf Urine Hyaline Casts Few 0 - 2 /lpf Urine Glucose Normal Normal mg/dL Troponin I High Sensitivity 6 </=34 ng/L White Blood Count 8.1 4.4-10.8 10^3/uL Red Blood Count 4.06 4.0-5.20 10^6/uL Hemoglobin 10.6 L 12.2-16.2 g/dL Hematocrit 32.0 L 36.0-46.0 % Mean Corpuscular Volume 78.9 L 80.0-100.0 fL Mean Corpuscular Hemoglobin 26.1 L 28.0-32.0 pg Mean Corpuscular Hemoglobin Concent 33.0 32.0-36.0 g/dL Red Cell Distribution Width 22.0 H 11.8-14.3 % Platelet Count 290 140-450 10^3/uL Mean Platelet Volume 6.8 L 6.9-10.8 fL Neutrophils (%) (Auto) 66.2 37.0-80.0 % Lymphocytes (%) (Auto) 22.5 10.0-50.0 % Monocytes (%) (Auto) 7.8 0.0-12.0 % Eosinophils (%) (Auto) 2.3 0.0-7.0 % Basophils (%) (Auto) 1.2 0.0-2.0 % Neutrophils # (Auto) 5.3 1.6-8.6 10 ^3/uL Lymphocytes # (Auto) 1.8 0.4-5.4 10 ^3/uL Monocytes # (Auto) 0.6 0-1.3 10 ^3/uL Eosinophils # (Auto) 0.2 0-0.8 10 ^3/uL Basophils # (Auto) 0.1 0-0.2 10 ^3/uL Nucleated Red Blood Cells 0.0 % Prothrombin Time 11.9 H 9.3-11.8 sec Prothrombin Time INR 1.14 0.9-1.15 Activated Partial Thromboplast Time 35.0 H 24.5-34.5 SEC Sodium Level 144 136-145 mmol/L Potassium Level 3.2 L 3.5-5.1 mmol/L Chloride Level 101 98-107 mmol/L Carbon Dioxide Level 35 H 20-31 mmol/L Anion Gap 8 5-15 Blood Urea Nitrogen 48 H 9-23 mg/dL Creatinine 1.42 H 0.550-1.02 mg/dL Glomerular Filtration Rate Calc 37 >90 mL/min BUN/Creatinine Ratio 33.8 H 10.0-20.0 Serum Glucose 94 74-106 mg/dL Calcium Level 10.2 8.7-10.4 mg/dL B-Type Natriuretic Peptide 248.42 0-100 pg/mL Assessment/Plan Assessment/Plan Bradycardia Epistaxis Urinary tract infection Morbid obesity Generalized weakness Plan 1. Admit to telemetry unit 2. Breathing treatment 3. Pain control management 4. IV antibiotic management 5. Management of fluids and electrolytes 6. Consultation for hospitalist 7. Diagnostic test chest x-ray 8. DVT prophylaxis-on SCDs 9. Repeat labs CBC, CMP in a.m. 10. Home medication reviewed and reconciled 11. Continue with current medical management 12. Treatment plan discussed with patient and RN. Patient verbalized understanding. Plan discussed with: Patient, Other (RN) My Orders Orders - ALYSON MORGAN DNP Procedure Category Date Status Time Aspirin Tablet PHA 08/14/24 In Process 10:00 Atorvastatin (Lipitor) PHA 08/13/24 In Process 22:00 Ceftriaxone 1gm/50ml PHA 08/14/24 In Process D5w (Rocephin) 09:00 Urine Bacterial AYO 08/13/24 In Process Culture 21:40 Famotidine Injection PHA 08/13/24 In Process (Pepcid Injection) 22:00 Consistent DIET 08/14/24 Transmitted Carb(Ccho)Diabetes Breakfast Dextrose 50% Syringe PHA 08/13/24 In Process 21:45 Allergies EDNA 08/13/24 In Process 21:40 Code Status CODE 08/13/24 Transmitted 21:40 Sodium Chloride Lock PHA 08/13/24 In Process (Saline Lock Ns) 22:00 Oxygen Per Hour RT 08/13/24 Transmitted 21:40 Hydrocodone-Acet PHA 08/13/24 In Process 5/325mg Tab ([place] 21:45 Ondansetron Hcl PHA 08/13/24 In Process (Zofran) 21:45 Docusate Sodium PHA 08/13/24 In Process Capsule (Colace 21:45 Fall Risk Precautions EDNA 08/13/[address] 21:40 Complete Blood Count LAB 08/14/24 Verified 04:00 Comprehensive LAB 08/14/24 Verified Metabolic Panel 04:00 Condition: Serious EDNA 08/13/24 In Process 21:40 Acetaminophen Tablet PHA 08/13/24 In Process (Tylenol Tablet) 21:45 Maintain Bed Rest EDNA 08/13/24 In Process 21:40 Sequential EDNA 08/13/24 In Process Compression Device * Cardiology Consult CONS 08/13/24 Transmitted 23:19 Admit ADMIT 08/13/24 Transmitted 23:19 Nitroglycerin PHA 08/13/24 Transmitted Sublingual (Ntrostat 23:30 Morphine Sulfate PHA 08/13/24 Transmitted Injection 23:30 Notify Md Of Changes EDNA 08/13/24 Transmitted From Base 23:19 Strategic Account Director For EDNA 08/13/24 Transmitted 24 Hours 23:19 Emergency Dysrhythmia EDNA 08/13/24 Transmitted Protocol 23:19 Rhythm Strips Once EDNA 08/13/24 Transmitted Every Shift 23:19 Oxygen By Nasal RT 08/13/24 Transmitted Cannula 23:19 Problem List: (1) Bradycardia (2) Epistaxis (3) Morbid obesity (4) Urinary tract infection (5) Generalized weakness Date of Service: August 13, 2024 Billing Provider: ALYSON MORGAN DNP Common Visit Codes: [id number] INP/OBS CARE (HIGH) ALYSON MORGAN DNP August 13, 2024 23:24
[2024-08-13] MEDS ORDERED: NITROGLYCERIN 0.4 MG SL TAB SL PRN (23:30)
[2024-08-13] MEDS ORDERED: MORPHINE SULFATE INJ 2 MG/ml SYRG IV PRN (23:30)
[2024-08-14] VITALS (8 sets, daily range): BP systolic 130–143; BP diastolic 31–47; PULSE 50–60; RESP 17–20; TEMP 97.6–98; O2SAT 91–100
[2024-08-14] MEDS: cefTRIAXone 1GM/50ML D5W 50 ML IV SCH (08:57)
[2024-08-14] MEDS: ASPirin 81 mg TAB PO SCH (08:58)
[2024-08-14] MEDS: FUROSEMIDE 20 MG TAB PO ONE (11:30)
[2024-08-14 11:37] LABS: Basophils # (auto) 0.1 10 ^3/uL (0-0.2); Eosinophils # (auto) 0.1 10 ^3/uL (0-0.8); Lymphocytes # (auto) 1.2 10 ^3/uL (0.4-5.4); White Blood Cell 9.2 10^3/uL (4.4-10.8)
--- NOTE | 2024-08-14 11:38 | DVHPN2 ---
Reviewed: Care Plan, H&P, Labs, Medications, Previous Orders, Radiology Changes from previous H/P or p: No Changes Eyes: No Pain, No Vision change, No Conjunctivae inflammation, No Eyelid in flammation, No Other, No Redness ENT: No Ear pain, No Ear discharge, No Nose pain; Nose discharge (Nosebleed); No Nose congestion, No Mouth pain, No Mouth swelling, No Throat pain, No Throat swelling, No Other Cardiovascular: No Chest Pain, No Palpitations, No Orthopnea, No Paroxysmal Noc. Dyspnea, No Edema, No Lt Headedness, No Other Respiratory: No Cough, No Dry, No Shortness of breath, No SOB with excertion, No Wheezing, No Hemoptysis, No Pleuritic Pain, No Sputum, No Other Gastrointestinal: No Nausea, No Vomiting, No Abdominal Pain, No Diarrhea, No Constipation, No Melena, No Hematochezia, No Other Genitourinary: No Dysuria, No Frequency, No Incontinence, No Hematuria, No Retention, No Other Musculoskeletal: No other, No neck pain, No shoulder pain, No arm pain, No back pain, No hand pain, No leg pain, No foot pain Skin: No Rash, No Lesions, No Jaundice, No Bruising, No Other Objective Vitals Vital Signs Date Time Temp Pulse Resp B/P (MAP) Pulse Ox O2 Delivery O2 Flow Rate FiO2 08/14/24 09:00 97.6 53 18 139/35 (69) 93 97.6 08/14/24 08:00 Simple Mask* 6 50 Intake/Output Intake and Output 08/14/24 07:00 Intake Total 50 ml Balance 50 ml Intake Oral 0 ml IV Total 50 ml Medications Current Medications Medications Dose Ordered Sig/Eulalia Route Start Time Stop Time Status Last Admin Dose Admin Aspirin 81 mg DAILY PO 08/14/24 10:00 08/14/24 08:58 81 MG Atorvastatin Calcium 20 mg HS PO 08/13/24 22:00 08/13/24 22:31 20 MG Ceftriaxone Sodium 50 ml @ 100 mls/hr DAILY@09 IV 08/14/24 09:00 08/14/24 08:57 100 MLS/HR Famotidine 20 mg Q12HR IV 08/13/24 22:00 08/14/24 08:57 20 MG Dextrose 50 ml UD PRN IV 08/13/24 21:45 Sodium Chloride 10 ml Q8HR IV 08/13/24 22:00 08/14/24 06:19 10 ML Acetaminophen/ Hydrocodone Bitart 1 tab Q4HP PRN PO 08/13/24 21:45 Ondansetron HCl 4 mg Q4HP PRN IV 08/13/24 21:45 Docusate Sodium 100 mg BIDPRN PRN PO 08/13/24 21:45 Acetaminophen 650 mg Q6HP PRN PO 08/13/24 21:45 08/13/24 22:58 650 MG Nitroglycerin 0.4 mg Q5MINP PRN SL 08/13/24 23:30 Morphine Sulfate 2 mg Q30M PRN IV 08/13/24 23:30 Laboratory Results Chemistry Test 08/13/24 13:54 08/14/24 10:20 Calcium Level 10.2 mg/dL (8.7-10.4) Pending Albumin Pending Total Protein Pending Coagulation Test 08/13/24 13:54 Prothrombin Time 11.9 sec (9.3-11.8) H Prothrombin Time INR 1.14 (0.9-1.15) Activated Partial Thromboplast Time 35.0 SEC (24.5-34.5) H Cardiac Markers Test 08/13/24 13:54 B-Type Natriuretic Peptide 248.42 pg/mL (0-100) LFT Test 08/14/24 10:20 Alanine Aminotransferase (ALT) Pending Alkaline Phosphatase Pending Aspartate Amino Transferase (AST) Pending Total Bilirubin Pending Urinalysis Test 08/13/24 18:50 Urine Color Light-yellow (Yellow) Urine Clarity Turbid (Clear) H Urine pH 6.0 (5.0-9.0) Urine Specific [place] 1.008 (1.001-1.035) Urine Protein Negative (Negative) Urine Ketones Negative (Negative) Urine Blood Negative /uL (Negative) Urine Nitrite Negative (Negative) Urine Bilirubin Negative (Negative) Urine Urobilinogen Normal mg/dL (Negative) Urine Leukocyte Esterase 3+ /uL (Negative) Urine RBC 3 /hpf (0 - 4) Urine Microscopic WBC 132 /HPF (0-5) H Urine Squamous Epithelial Cells Few /hpf (<5) Urine Bacteria None seen /hpf (None Seen) Urine Hyaline Casts Few /lpf (0 - 2) Urine Glucose Normal mg/dL (Normal) Microbiology Microbiology Date/Time Source Procedure Growth Status 08/13/24 18:50 Voided Urine Urine Culture - Preliminary Resulted Labs and/or images reviewed: Labs reviewed by me, Image(s) reviewed by me Assessment/Plan Assessment/Plan Bradycardia heart rate 50: Consult for Dr. 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 at [facility] History of TAVR CHF Diabetes Hypercholesterolemia Hypotension Gout Acute hypokalemia potassium 3.2: Replace potassium Daughter Gisela [phone] Silvina mina Time Spent 70 minutes Advanced care planning time 20 minutes General Condition poor because of multiple comorbidities Plan discussed with: Patient My Orders Orders - ANNA GOODWIN MD Procedure Category Date Status Time * Cardiology Consult CONS 08/14/24 Transmitted 11:27 Potassium Er Tablet PHA 08/14/24 Transmitted (Klor-Con Tablet) 22:00 Metolazone (Zaroxolyn) PHA 08/14/24 Transmitted 22:00 Furosemide Tablet PHA 08/15/24 Transmitted (Lasix Tablet) 10:00 Furosemide Tablet PHA 08/14/24 Transmitted (Lasix Tablet) 11:30 Date of Service: August 14, 2024 Billing Provider: ANNA GOODWIN MD Common Visit Codes: [id number] INP/OBS CARE(HIGH) ANNA GOODWIN MD August 14, 2024 11:37
[2024-08-14 11:40] LABS: Basophils % (auto) 0.7 % (0.0-2.0); Eosinophils % (auto) 1.5 % (0.0-7.0); Hematocrit 31.8 % (36.0-46.0); Hemoglobin 10.3 g/dL (12.2-16.2); Lymphocytes % (auto) 13.4 % (10.0-50.0); Mean Corpuscular Hemoglobin 25.7 pg (28.0-32.0); Mean Corpuscular Hgb Conc. 32.3 g/dL (32.0-36.0); Mean Corpuscular Volume 79.7 fL (80.0-100.0); Monocytes # (auto) 0.5 10 ^3/uL (0-1.3); Monocytes % (auto) 5.7 % (0.0-12.0); Neutrophils # (auto) 7.3 10 ^3/uL (1.6-8.6); Neutrophils % (auto) 78.7 % (37.0-80.0); Platelet Count (auto) 284 10^3/uL (140-450); Red Blood Cells 3.99 10^6/uL (4.0-5.20); Red Cell Distribution Width 21.8 % (11.8-14.3)
[2024-08-14 11:42] LABS: Anion Gap 8 (5-15); BUN/Creatinine Ratio 31.9 (10.0-20.0); Calcium 10.1 mg/dL (8.7-10.4); Sodium 143 mmol/L (136-145); Total Protein 6.7 g/dL (5.7-8.2)
[2024-08-14 11:43] LABS: Bilirubin, Total 0.3 mg/dL (0.2-1.0)
[2024-08-14 11:56] LABS: Alanine Aminotransferase < 9 U/L (7-40); Alkaline Phosphatase 129 U/L (46-116); Aspartate Aminotransferase 13 U/L (13-40); Blood Urea Nitrogen 45 mg/dL (9-23); Carbon Dioxide 38 mmol/L (20-31); Chloride 97 mmol/L (98-107); Glucose 150 mg/dL (74-106); Potassium 2.4 mmol/L (3.5-5.1)
[2024-08-14] MEDS: SODIUM CHL 0.9% 50 ML IV SCH (12:24)
[2024-08-14] MEDS: POTASSIUM CHL 20MEQ/50ML 50 ML IV SCH (12:24)
[2024-08-14] MEDS: POTASSIUM CHL 20 Meq TABLET PO ONE ×3 (12:37→15:18)
[2024-08-14] MEDS: POTASSIUM CHL 20 Meq TABLET PO SCH (21:39)
[2024-08-14] MEDS: metOLazone 5 MG TAB PO SCH (21:39)
--- NOTE | 2024-08-14 22:12 | DVHINCON2 ---
Date of service: August 14, 2024 Reason for Consultation Acute on chronic diastolic heart failure History of Present Illness A 14-point review of systems is negative unless otherwise noted above Family History: Cerebrovascular accident (CVA) G8 MOTHER FH: aneurysm G8 FATHER Hypertension G8 MOTHER Allergies: Coded Allergies: Benzalkonium Chloride (Verified Allergy, Severe, 08/13/24) Edetic Acid (Verified Allergy, Severe, 08/13/24) Tiotropium (Verified Allergy, Severe, 08/13/24) Home Meds Reported Medications Semaglutide (Ozempic) 2 Mg/3 Ml Inj, MG SC UD Inject 0.25 mg subcutaneously every week for 4 weeks, then increase to 0.5 mg every week for 4 weeks. 11/05/23 Potassium Chloride (Potassium Chloride ER) 20 Meq Tab, MEQ PO UD Take 1 tablet by mouth in the morning, 2 tablets by mouth in the afternoon, and 1 tablet by mouth in the evening. 11/05/23 Acetaminophen (Acetaminophen) 500 Mg Tab, 500 MG PO Q6HPRN PRN for PAIN SCALE 1 THRU 6, TAB 11/04/23 Metoprolol Succinate (Metoprolol Succinate Er) 25 Mg Tab, 1 TAB PO DAILY, #30 TAB 5 Refills 11/04/23 Mecobalamin (B12) 5,000 Mcg Sub, 5000 MCG SL, INJ 11/04/23 Estradiol Vaginal (Yuvafem) 10 Mcg Tab, 10 MCG VA MT PRN for 2XWEEK, TAB 11/04/23 Pantoprazole Sodium (PANTOPRAZOLE SODIUM) 40 Mg Inj, 40 MG PO DAILY, INJ 11/04/23 Atorvastatin Calcium (ATORVASTATIN CALCIUM) 40 Mg Tab, 1 TAB PO QPM, #90 TAB 3 Refills 08/22/23 Multiple Vitamin (Multivitamins) Tab, 1 TAB PO DAILY, #90 TAB 3 Refills 08/22/23 B-Complex W/Biotin & Folic Aci (Super B-Complex) 1 Tab Tab, 1 TAB PO DAILY, TAB 08/22/23 Apoaequorin (PREVAGEN) 10 Mg Cap, 10 MG PO DAILY, CAP 08/22/23 Mirtazapine (REMERON) 30 Mg Tab, 1 TAB PO QPM, #30 TAB 1 Refill 08/22/23 Triazolam (Triazolam) 0.25 Mg Tab, 0.25 MG PO HS, TAB 08/22/23 Ferrous Sulfate (Ferrous Sulfate) 325 Mg Tab, 325 MG PO MWF for 30 Days 08/22/23 Docusate Sodium (Colace) 100 Mg Cap, 100 MG PO MWF, CAP 08/22/23 Magnesium Oxide (MAGNESIUM OXIDE) 400 Mg Tab, 1 TAB PO DAILY, #30 TAB 5 Refills 08/22/23 Apixaban Base (ELIQUIS) 5 Mg Tab, 5 MG PO BID, TAB 08/22/23 Atmzsxkbbds-Zsqvqbamtflm-Ltvty (Trelegy Ellipta 100-62.5-25 Mcg/INH) 1 Aer Aer, 1 PUFF INH DAILY 08/22/23 Metolazone (Metolazone) 5 Mg Tab, 5 MG PO DAILY, TAB 08/22/23 Furosemide (Furosemide) 40 Mg Tab, 40 MG PO BID for 30 Days 08/22/23 Aspirin (Aspirin 81 Low Dose) 81 Mg Chw, 81 MG PO DAILY, TAB.CHEW 08/22/23 Pregabalin (Lyrica) 200 Mg Cap, 1 CAP PO BID, #60 CAP 08/22/23 Current Medications Current Medications Medications (Trade) Dose Ordered Sig/Eulalia Route PRN Reason Start Time Stop Time Status Last Admin Aspirin 81 mg DAILY PO 08/14/24 10:00 08/14/24 08:58 Ceftriaxone Sodium 50 ml @ 100 mls/hr DAILY@09 IV 08/14/24 09:00 08/14/24 08:57 Nitroglycerin (Ntrostat Sublingual) 0.4 mg Q5MINP PRN SL FOR CHEST PAIN 08/13/24 23:30 Morphine Sulfate 2 mg Q30M PRN IV FOR CHEST PAIN 08/13/24 23:30 Potassium Chloride (Klor-Con Tablet) 40 meq BID PO 08/14/24 22:00 08/14/24 21:39 Metolazone (Zaroxolyn) 5 mg BID PO 08/14/24 22:00 08/14/24 21:39 Furosemide (Lasix Tablet) 60 mg DAILY PO 08/15/24 10:00 Potassium Chloride 50 ml @ 25 mls/hr Q2H IV 08/14/24 12:15 08/14/24 15:05 DC 08/14/24 12:24 Sodium Chloride 50 ml @ 25 mls/hr Q2H IV 08/14/24 12:15 08/14/24 15:05 DC 08/14/24 12:24 Vital Signs Vital Signs Date Time Temp Pulse Resp B/P (MAP) Pulse Ox O2 Delivery O2 Flow Rate FiO2 08/14/24 21:39 130/82 08/14/24 21:00 98.0 53 20 97 98.0 08/14/24 08:00 Simple Mask* 6 50 Physical Exam Heart: S1 and S2 present. The patient is bradycardic 56bpm. Lungs: Scattered rhonchi. Abdomen: Benign. Extremities: Distal pulses palpable, 2+. Bilateral lower extremity edema noted. Labs/Diagnostic Data Labs Test 08/14/24 10:20 08/13/24 18:50 08/13/24 15:09 08/13/24 13:54 Range/Units White Blood Count 9.2 4.4-10.8 10^3/uL Red Blood Count 3.99 L 4.0-5.20 10^6/uL Hemoglobin 10.3 L 12.2-16.2 g/dL Hematocrit 31.8 L 36.0-46.0 % Mean Corpuscular Volume 79.7 L 80.0-100.0 fL Mean Corpuscular Hemoglobin 25.7 L 28.0-32.0 pg Mean Corpuscular Hemoglobin Concent 32.3 32.0-36.0 g/dL Red Cell Distribution Width 21.8 H 11.8-14.3 % Platelet Count 284 140-450 10^3/uL Mean Platelet Volume 7.2 6.9-10.8 fL Neutrophils (%) (Auto) 78.7 37.0-80.0 % Lymphocytes (%) (Auto) 13.4 10.0-50.0 % Monocytes (%) (Auto) 5.7 0.0-12.0 % Eosinophils (%) (Auto) 1.5 0.0-7.0 % Basophils (%) (Auto) 0.7 0.0-2.0 % Neutrophils # (Auto) 7.3 1.6-8.6 10 ^3/uL Lymphocytes # (Auto) 1.2 0.4-5.4 10 ^3/uL Monocytes # (Auto) 0.5 0-1.3 10 ^3/uL Eosinophils # (Auto) 0.1 0-0.8 10 ^3/uL Basophils # (Auto) 0.1 0-0.2 10 ^3/uL Nucleated Red Blood Cells 0.0 % Sodium Level 143 136-145 mmol/L Potassium Level 2.4 *L 3.5-5.1 mmol/L Chloride Level 97 L 98-107 mmol/L Carbon Dioxide Level 38 H 20-31 mmol/L Anion Gap 8 5-15 Blood Urea Nitrogen 45 H 9-23 mg/dL Creatinine 1.41 H 0.550-1.02 mg/dL Glomerular Filtration Rate Calc 38 >90 mL/min BUN/Creatinine Ratio 31.9 H 10.0-20.0 Serum Glucose 150 H 74-106 mg/dL Calcium Level 10.1 8.7-10.4 mg/dL Total Bilirubin 0.3 0.2-1.0 mg/dL Aspartate Amino Transferase (AST) 13 13-40 U/L Alanine Aminotransferase (ALT) < 9 7-40 U/L Alkaline Phosphatase 129 H 46-116 U/L Total Protein 6.7 5.7-8.2 g/dL Albumin 4.0 3.2-4.8 g/dL Urine Color Light-yellow Yellow Urine Clarity Turbid H Clear Urine pH 6.0 5.0-9.0 Urine Specific [place] 1.008 1.001-1.035 Urine Protein Negative Negative Urine Ketones Negative Negative Urine Blood Negative Negative /uL Urine Nitrite Negative Negative Urine Bilirubin Negative Negative Urine Urobilinogen Normal Negative mg/dL Urine Leukocyte Esterase 3+ Negative /uL Urine RBC 3 0 - 4 /hpf Urine Microscopic WBC 132 H 0-5 /HPF Urine Squamous Epithelial Cells Few <5 /hpf Urine Bacteria None seen None Seen /hpf Urine Hyaline Casts Few 0 - 2 /lpf Urine Glucose Normal Normal mg/dL Troponin I High Sensitivity 6 </=34 ng/L Prothrombin Time 11.9 H 9.3-11.8 sec Prothrombin Time INR 1.14 0.9-1.15 Activated Partial Thromboplast Time 35.0 H 24.5-34.5 SEC B-Type Natriuretic Peptide 248.42 0-100 pg/mL Microbiology Date/Time Source Procedure Growth Status 08/13/24 18:50 Voided Urine Urine Culture - Preliminary Resulted Assessment The patient is an 78-year-old female who initially presented to the emergency department on 08/13/2024 with complaints of epistaxis. She is currently on Eliquis 5 mg BID for a history of deep vein thrombosis (DVT). During the examination, the patient reported chest pain, which she described as a pressure sensation across the chest, accompanied by increased dyspnea on exertion. Last reported dose of Eliquis 5 mg was yesterday morning. Laboratory Findings revealed Hemoglobin: 10.6 g/dL, PT: 11.9 seconds, Potassium: 2.4 mmol/L (low), Creatinine: 1.41 mg/dL, GFR: 38 mL/min/1.73 m (reduced), BNP: 248.42 pg/mL (elevated) High-Sensitivity Troponin: 6 ng/L Given the presence of epistaxis while on anticoagulation, the concern is for bleeding complications. The chest pain and increased dyspnea raise suspicion for a possible heart failure exacerbation, particularly with the elevated BNP. At present, the patient denies active chest pain, palpitations, orthopnea, or paroxysmal nocturnal dyspnea. Echocardiogram: (10/2023) EF 55%. Grade 2 diastolic dysfunction. Mild AR, RVSP 40 mmHg. Left heart catheterization (07/2023) non-obstructive coronary artery disease, mild pulmonary hypertension type 2, increased EDP 16 mmHg History of deep vein thrombosis on anticoagulation therapy Acute on chronic diastolic heart failure Dyspnea on exertion Atypical chest pain Diabetes Mellitus ll Hyperlipidemia Hypertension Epistaxis Plan/Recommendation Cardiology Recommendations: Request for 2D Echocardiogram Request for CT of the chest without contrast Proceed with close observation for overt signs of fluid overload Proceed with strict intakes, outputs, and daily weights Proceed with close rate and rhythm surveillance Proceed with close hemodynamic surveillance Proceed with optimized blood pressure control Transfuse to sustain HGB levels above 7.0 Sustain Magnesium level greater than 2.0 Sustain Potassium level greater than 4.0 Follow up renal function and electrolytes Lovenox 1mg/kg subcutaneous BID to start tomorrow Transitioning from oral anticoagulation to Lovenox due to recent epistaxis, given GFR of 38 will initiate DVT treatment 48 hours after last dose of Eliquis Management in Telemetry Recommend evaluation by ENT Will proceed to follow from a cardiac perspective Further recommendations per clinical progression All available labs, EKGs, and images were personally reviewed Patient's status, findings, and plan of care was discussed and reviewed with supervising physician Dr. Becker, who is in agreement with current plan of care. Plan of care discussed with and agreed upon by patient/family/Primary RN. Prognosis: Guarded Thank you for allowing me to participate in the care of this patient. Further recommendations will depend on clinical progression, hospitalist, and other consultants. Will continue to follow with Primary. If you have any questions, please do not hesitate to contact me. A total of 75 minutes was spent reviewing the patient record, examining the patient, making a diagnostic and therapeutic plan, discussing this plan with medical personnel, following up on diagnostic studies and following the patient for clinical stability excluding Plan discussed with: Patient MARIE ESPINOZA [employer] August 14, 2024 22:12
[2024-08-15] VITALS (8 sets, daily range): BP systolic 108–153; BP diastolic 32–60; PULSE 50–63; RESP 17–18; TEMP 97.8–98.5; O2SAT 91–98
--- NOTE | 2024-08-15 06:47 | DVHPN2 ---
Progress Note - Dictate Date Seen: August 15, 2024 Medical Necessity Reason Pt with a Central, PICC or Fol: No vital signs Vital Sign Date Time Temp Pulse Resp B/P (MAP) Pulse Ox O2 Delivery O2 Flow Rate FiO2 08/15/24 05:00 98.5 50 18 139/34 (69) 98 98.5 08/14/24 20:00 Simple Mask* 6 50 Total Intake and Output 08/14/24 08/14/24 08/15/24 15:00 23:00 07:00 Intake Total 50 ml 200 ml 400 ml Output Total 200 ml Balance 50 ml 0 ml 400 ml medications Current Medications Medications Dose Ordered Sig/Eulalia Route Start Time Stop Time Status Last Admin Dose Admin Aspirin 81 mg DAILY PO 08/14/24 10:00 08/14/24 08:58 81 MG Atorvastatin Calcium 20 mg HS PO 08/13/24 22:00 08/14/24 21:39 20 MG Ceftriaxone Sodium 50 ml @ 100 mls/hr DAILY@09 IV 08/14/24 09:00 08/14/24 08:57 100 MLS/HR Famotidine 20 mg Q12HR IV 08/13/24 22:00 08/14/24 21:37 20 MG Dextrose 50 ml UD PRN IV 08/13/24 21:45 Sodium Chloride 10 ml Q8HR IV 08/13/24 22:00 08/15/24 05:13 10 ML Acetaminophen/ Hydrocodone Bitart 1 tab Q4HP PRN PO 08/13/24 21:45 Ondansetron HCl 4 mg Q4HP PRN IV 08/13/24 21:45 Docusate Sodium 100 mg BIDPRN PRN PO 08/13/24 21:45 Acetaminophen 650 mg Q6HP PRN PO 08/13/24 21:45 08/15/24 05:13 650 MG Nitroglycerin 0.4 mg Q5MINP PRN SL 08/13/24 23:30 Morphine Sulfate 2 mg Q30M PRN IV 08/13/24 23:30 Potassium Chloride 40 meq BID PO 08/14/24 22:00 08/14/24 21:39 40 MEQ Metolazone 5 mg BID PO 08/14/24 22:00 08/14/24 21:39 5 MG Furosemide 60 mg DAILY PO 08/15/24 10:00 Enoxaparin Sodium 100 mg DAILY SC 08/15/24 10:00 laboratory and microbiology Laboratory Tests 08/14/24 10:20 Test 08/14/24 10:20 Range/Units Serum Glucose 150 H 74-106 mg/dL Assessment/Plan The patient is an 78-year-old female who initially presented to the emergency department on 08/13/2024 with complaints of epistaxis. She is currently on Eliquis 5 mg BID for a history of deep vein thrombosis (DVT). During the examination, the patient reported chest pain, which she described as a pressure sensation across the chest, accompanied by increased dyspnea on exertion. Last reported dose of Eliquis 5 mg was yesterday morning. Laboratory Findings revealed Hemoglobin: 10.6 g/dL, PT: 11.9 seconds, Potassium: 2.4 mmol/L (low), Creatinine: 1.41 mg/dL, GFR: 38 mL/min/1.73 m (reduced), BNP: 248.42 pg/mL (elevated) High-Sensitivity Troponin: 6 ng/L Given the presence of epistaxis while on anticoagulation, the concern is for bleeding complications. The chest pain and increased dyspnea raise suspicion for a possible heart failure exacerbation, particularly with the elevated BNP. No over night events, Patient Sinus carla 58 on telemetry. At present, the patient denies active chest pain, palpitations, orthopnea, or paroxysmal nocturnal dyspnea. Echocardiogram: (10/2023) EF 55%. Grade 2 diastolic dysfunction. Mild AR, RVSP 40 mmHg. Left heart catheterization (07/2023) non-obstructive coronary artery disease, mild pulmonary hypertension type 2, increased EDP 16 mmHg History of deep vein thrombosis on anticoagulation therapy Acute on chronic diastolic heart failure Dyspnea on exertion Atypical chest pain Diabetes Mellitus ll Hyperlipidemia Hypertension Epistaxis Cardiology Recommendations: Awaiting requested 2D Echocardiogram Awaiting requested CT of the chest without contrast Proceed with close observation for overt signs of fluid overload Proceed with strict intakes, outputs, and daily weights Proceed with close rate and rhythm surveillance Proceed with close hemodynamic surveillance Proceed with optimized blood pressure control Transfuse to sustain HGB levels above 7.0 Sustain Magnesium level greater than 2.0 Sustain Potassium level greater than 4.0 Follow up renal function and electrolytes Lovenox 1mg/kg subcutaneous daily Transitioning from oral anticoagulation to Lovenox due to recent epistaxis, given GFR of 38 will initiate DVT treatment 48 hours after last dose of Eliquis Consult to interventional radiology for evaluation for possible IVC filter Management in Telemetry Recommend evaluation by ENT Will proceed to follow from a cardiac perspective Further recommendations per clinical progression All available labs, EKGs, and images were personally reviewed Patient's status, findings, and plan of care was discussed and reviewed with supervising physician Dr. Becker, who is in agreement with current plan of care. Plan of care discussed with and agreed upon by patient/family/Primary RN. Prognosis: Guarded Thank you for allowing me to participate in the care of this patient. Further recommendations will depend on clinical progression, hospitalist, and other consultants. Will continue to follow with Primary. If you have any questions, please do not hesitate to contact me. A total of 75 minutes was spent reviewing the patient record, examining the patient, making a diagnostic and therapeutic plan, discussing this plan with medical personnel, following up on diagnostic studies and following the patient for clinical stability excluding Plan discussed with: Patient Plan discussed with: Patient MARIE ESPINOZA NP August 15, 2024 06:47
[2024-08-15] MEDS: FUROSEMIDE 20 MG TAB PO SCH (09:56)
[2024-08-15] MEDS: ENOXAPARIN SOD 100 MG/1 ML SYRINGE SC SCH (09:58)
--- NOTE | 2024-08-15 10:24 | DVH ---
CLINICAL INFORMATION: 78 years old, Female; Dyspnea on exertion, chest pain. TECHNIQUE: Axial CT imaging of the chest was performed without IV contrast. Sagittal and coronal refo rmatted images were made, stored and reviewed. Evaluation is limited without IV contrast. One or more of the following dose reduction techniques were used: Automated exposure control. Adjustment of mA a nd/or kV according to patient size. CTDIvol = 24.94 mGy DLP = 926.56 mGy-cm COMPARISON: CTA chest dated 02/26/2021. FINDINGS: Aorta: Thoracic aortic aneurysm status post endo graft placement, with the graft extending from the p roximal aspect of the ascending aorta through the distal descending thoracic aorta and into the abdom inal aorta, and extending below the [id number] of the exam. Ascending aorta measures up to 6.4 cm in diameter. Descending aorta measures up to 6.3 cm in diameter. Stent grafts are seen at the origins of the brachiocephalic, left common carotid, and left subclavian arteries. There also stent grafts visualized of the celiac artery, SMA, bilateral renal artery origins. Cardiac: Mild cardiomegaly. Dense coronary artery calcification and/or stents. Mediastinum/geronimo: No mass or adenopathy. Lungs: Scattered areas of subsegmental atelectasis in both lungs, most prominent in the lung bases. N o focal consolidation. No pneumothorax or pleural effusion seen. Respiratory motion limits evaluation for subtle findings. Moderate emphysematous changes. Areas of bronchial wall thickening and mucoid i mpaction, particularly in the lower lobe bronchi bilaterally. Pulmonary arteries: No gross abnormality. Chest wall: No mass or other abnormality. Upper abdomen: Cholecystectomy. Aortic stent graft extends into the abdominal aorta and below the fie ld-of-view of the exam. Scarring in both kidneys. Bones: No fracture or suspicious intraosseous lesions. IMPRESSION: 1. Thoracic aortic aneurysm status post endograft repair as detailed above. Ascending aorta measures up to 6.4 cm in diameter and descending aorta measures up to 6.3 cm in diameter. 2. Scattered areas of subsegmental atelectasis in both lungs. There is also bronchial wall thickening and mucoid impaction, particularly in the lower lobe bronchi bilaterally. No dense focal consolidati on visualized. 3. Moderate emphysematous changes. 4. Additional findings as detailed above.
--- NOTE | 2024-08-15 10:30 | DVHPN2 ---
Reviewed: Care Plan, H&P, Labs, Medications, Previous Orders, Radiology Changes from previous H/P or p: No Changes Eyes: No Pain, No Vision change, No Conjunctivae inflammation, No Eyelid inflammation, No Other, No Redness ENT: No Ear pain, No Ear discharge, No Nose pain; Nose discharge (Nosebleed); No Nose congestion, No Mouth pain, No Mouth swelling, No Throat pain, No Throat swelling, No Other Cardiovascular: No Chest Pain, No Palpitations, No Orthopnea, No Paroxysmal Noc. Dyspnea, No Edema, No Lt Headedness, No Other Respiratory: No Cough, No Dry, No Shortness of breath, No SOB with excertion, No Wheezing, No Hemoptysis, No Pleuritic Pain, No Sputum, No Other Gastrointestinal: No Nausea, No Vomiting, No Abdominal Pain, No Diarrhea, No Constipation, No Melena, No Hematochezia, No Other Genitourinary: No Dysuria, No Frequency, No Incontinence, No Hematuria, No Retention, No Other Musculoskeletal: No other, No neck pain, No shoulder pain, No arm pain, No back pain, No hand pain, No leg pain, No foot pain Skin: No Rash, No Lesions, No Jaundice, No Bruising, No Other Objective Vitals Vital Signs Date Time Temp Pulse Resp B/P (MAP) Pulse Ox O2 Delivery O2 Flow Rate FiO2 08/15/24 09:57 108/34 08/15/24 09:00 97.9 53 18 97 97.9 08/15/24 07:47 Simple Mask* 6 50 Intake/Output Intake and Output 08/15/24 07:00 Intake Total 650 ml Output Total 200 ml Balance 450 ml Intake Oral 600 ml IV Total 50 ml Output Urine Total 200 ml # Voids 2 # Bowel Movements 1 Medications Current Medications Medications Dose Ordered Sig/Eulalia Route Start Time Stop Time Status Last Admin Dose Admin Aspirin 81 mg DAILY PO 08/14/24 10:00 08/15/24 09:57 81 MG Atorvastatin Calcium 20 mg HS PO 08/13/24 22:00 08/14/24 21:39 20 MG Ceftriaxone Sodium 50 ml @ 100 mls/hr DAILY@09 IV 08/14/24 09:00 08/15/24 09:58 100 MLS/HR Famotidine 20 mg Q12HR IV 08/13/24 22:00 08/14/24 21:37 20 MG Dextrose 50 ml UD PRN IV 08/13/24 21:45 Sodium Chloride 10 ml Q8HR IV 08/13/24 22:00 08/15/24 05:13 10 ML Acetaminophen/ Hydrocodone Bitart 1 tab Q4HP PRN PO 08/13/24 21:45 Ondansetron HCl 4 mg Q4HP PRN IV 08/13/24 21:45 Docusate Sodium 100 mg BIDPRN PRN PO 08/13/24 21:45 Acetaminophen 650 mg Q6HP PRN PO 08/13/24 21:45 08/15/24 05:13 650 MG Nitroglycerin 0.4 mg Q5MINP PRN SL 08/13/24 23:30 Morphine Sulfate 2 mg Q30M PRN IV 08/13/24 23:30 Potassium Chloride 40 meq BID PO 08/14/24 22:00 08/15/24 09:57 40 MEQ Metolazone 5 mg BID PO 08/14/24 22:00 08/15/24 09:57 5 MG Furosemide 60 mg DAILY PO 08/15/24 10:00 Enoxaparin Sodium 100 mg DAILY SC 08/15/24 10:00 08/15/24 09:58 100 MG Laboratory Results Laboratory Tests 08/14/24 10:20 Urinalysis Test 08/13/24 18:50 Urine Color Light-yellow (Yellow) Urine Clarity Turbid (Clear) H Urine pH 6.0 (5.0-9.0) Urine Specific [place] 1.008 (1.001-1.035) Urine Protein Negative (Negative) Urine Ketones Negative (Negative) Urine Blood Negative /uL (Negative) Urine Nitrite Negative (Negative) Urine Bilirubin Negative (Negative) Urine Urobilinogen Normal mg/dL (Negative) Urine Leukocyte Esterase 3+ /uL (Negative) Urine RBC 3 /hpf (0 - 4) Urine Microscopic WBC 132 /HPF (0-5) H Urine Squamous Epithelial Cells Few /hpf (<5) Urine Bacteria None seen /hpf (None Seen) Urine Hyaline Casts Few /lpf (0 - 2) Urine Glucose Normal mg/dL (Normal) Microbiology Microbiology Date/Time Source Procedure Growth Status 08/13/24 18:50 Voided Urine Urine Culture - Preliminary Resulted Labs and/or images reviewed: Labs reviewed by me, Image(s) reviewed by me Assessment/Plan Assessment/Plan Bradycardia heart rate 50: Consult for Dr. Resendiz appreciated Epistaxis resolved, hold Eliquis, cardiology started on Lovenox therapeutic dose Urinary tract infection: Urine cultures Rocephin Morbid obesity Generalized weakness Radiology consult for IVC filter placement Repeat echo pending CT chest without contrast result pending History of repair of ascending descending and abdominal aortic aneurysms at [facility] History of TAVR CHF Diabetes Hypercholesterolemia Hypertension Gout Acute hypokalemia potassium 3.2: Replace potassium Daughter Gisela [phone] Silvina mina Time Spent 50 minutes Advanced care planning time 20 minutes General Condition poor because of multiple comorbidities Plan discussed with: Patient My Orders Orders - ANNA GOODWIN MD Procedure Category Date Status Time * Cardiology Consult CONS 08/14/24 Transmitted 11:27 Potassium Er Tablet PHA 08/14/24 In Process (Klor-Con Tablet) 22:00 Metolazone (Zaroxolyn) PHA 08/14/24 In Process 22:00 Furosemide Tablet PHA 08/15/24 In Process (Lasix Tablet) 10:00 Date of Service: August 15, 2024 Billing Provider: ANNA GOODWIN MD Common Visit Codes: [id number] INP/OBS CARE(HIGH) ANNA GOODWIN MD August 15, 2024 10:30
[2024-08-15 11:19] LABS: Basophils # (auto) 0.1 10 ^3/uL (0-0.2); Eosinophils # (auto) 0.2 10 ^3/uL (0-0.8); Monocytes # (auto) 0.6 10 ^3/uL (0-1.3)
[2024-08-15 11:20] LABS: Eosinophils % (auto) 2.5 % (0.0-7.0); Hematocrit 30.2 % (36.0-46.0); Hemoglobin 9.7 g/dL (12.2-16.2); Lymphocytes # (auto) 1.4 10 ^3/uL (0.4-5.4); Lymphocytes % (auto) 17.3 % (10.0-50.0); Mean Corpuscular Hemoglobin 25.9 pg (28.0-32.0); Mean Corpuscular Volume 80.7 fL (80.0-100.0); Monocytes % (auto) 7.3 % (0.0-12.0); Neutrophils # (auto) 5.8 10 ^3/uL (1.6-8.6); Neutrophils % (auto) 71.9 % (37.0-80.0); Platelet Count (auto) 252 10^3/uL (140-450); Red Blood Cells 3.74 10^6/uL (4.0-5.20); White Blood Cell 8.1 10^3/uL (4.4-10.8)
[2024-08-15 11:44] LABS: Alanine Aminotransferase 13 U/L (7-40); Albumin 3.7 g/dL (3.2-4.8); Anion Gap 8 (5-15); Aspartate Aminotransferase 14 U/L (13-40); BUN/Creatinine Ratio 28.9 (10.0-20.0); Bilirubin, Total 0.4 mg/dL (0.2-1.0); Calcium 9.9 mg/dL (8.7-10.4); Chloride 101 mmol/L (98-107); Potassium 3.8 mmol/L (3.5-5.1); Sodium 142 mmol/L (136-145); Total Protein 6.4 g/dL (5.7-8.2)
[2024-08-15 11:47] LABS: Alkaline Phosphatase 122 U/L (46-116); Blood Urea Nitrogen 39 mg/dL (9-23); Carbon Dioxide 33 mmol/L (20-31); Glucose 146 mg/dL (74-106)
[2024-08-15] MEDS: SODIUM CHLORIDE 0.9% 1,350 ML IV ONE (12:24)
[2024-08-16] VITALS (12 sets, daily range): BP systolic 117–166; BP diastolic 34–72; PULSE 18–67; RESP 12–19; TEMP 98.3–98.7; O2SAT 95–100
[2024-08-16] MEDS: MELATONIN 5 MG TAB PO ONE (00:31)
--- NOTE | 2024-08-16 07:16 | DVHPN2 ---
Progress Note - Dictate Date Seen: August 16, 2024 Medical Necessity Reason Pt with a Central, PICC or Fol: No vital signs Vital Sign Date Time Temp Pulse Resp B/P (MAP) Pulse Ox O2 Delivery O2 Flow Rate FiO2 08/16/24 05:00 98.4 51 18 155/58 (90) 99 98.4 08/15/24 20:00 Simple Mask* 8 60 Total Intake and Output 08/15/24 08/15/24 08/16/24 15:00 23:00 07:00 Intake Total 400 ml 800 ml Balance 400 ml 800 ml medications Current Medications Medications Dose Ordered Sig/Eulalia Route Start Time Stop Time Status Last Admin Dose Admin Aspirin 81 mg DAILY PO 08/14/24 10:00 08/15/24 09:57 81 MG Atorvastatin Calcium 20 mg HS PO 08/13/24 22:00 08/15/24 22:26 20 MG Ceftriaxone Sodium 50 ml @ 100 mls/hr DAILY@09 IV 08/14/24 09:00 08/15/24 09:58 100 MLS/HR Famotidine 20 mg Q12HR IV 08/13/24 22:00 08/15/24 22:26 20 MG Dextrose 50 ml UD PRN IV 08/13/24 21:45 Sodium Chloride 10 ml Q8HR IV 08/13/24 22:00 08/16/24 06:00 10 ML Acetaminophen/ Hydrocodone Bitart 1 tab Q4HP PRN PO 08/13/24 21:45 Ondansetron HCl 4 mg Q4HP PRN IV 08/13/24 21:45 Docusate Sodium 100 mg BIDPRN PRN PO 08/13/24 21:45 Acetaminophen 650 mg Q6HP PRN PO 08/13/24 21:45 08/15/24 05:13 650 MG Nitroglycerin 0.4 mg Q5MINP PRN SL 08/13/24 23:30 Morphine Sulfate 2 mg Q30M PRN IV 08/13/24 23:30 Potassium Chloride 40 meq BID PO 08/14/24 22:00 08/15/24 22:26 40 MEQ Metolazone 5 mg BID PO 08/14/24 22:00 08/15/24 22:25 5 MG Furosemide 60 mg DAILY PO 08/15/24 10:00 Enoxaparin Sodium 100 mg DAILY SC 08/15/24 10:00 08/15/24 09:58 100 MG Melatonin 5 mg HS PO 08/16/24 22:00 Cancel laboratory and microbiology Laboratory Tests 08/15/24 10:57 Test 08/15/24 10:57 Range/Units Serum Glucose 146 H 74-106 mg/dL Assessment/Plan ASSESSMENT: The patient is an 78-year-old female who initially presented to the emergency department on 08/13/2024 with complaints of epistaxis. She had previously been on Eliquis 5mg twice daily in the setting of prior lower extremity DVT. Patient is known to utilize home oxygen which could have attributed to the clinical picture. Initial HGB level was found to be 10.6 with an INR of 1.14. Upon ED arrival, patient was furthermore found bradycardic (asymptomatic) which it is of note, patient is known to take Metoprolol Succinate 25mg daily which could have attributed to the bradycardia. Initial HS troponin was found normal at 6. BNP was found elevated at 248 which subsequent chest imaging had revealed no evidence for vascular congestion. Patient does have known history of diastolic heart failure which Echocardiogram has revealed a low-normal LVEF of 50% with mild left ventricular hypertrophy. Of note patient does have known history of previous TAA and is status post previous endovascular repair performed at [facility] which at present Chest Chest (without contrast) had revealed known presence of TAA measuring up to 6.4cm (ascending) and 6.3cm (descending) which is considered stable in comparison to previous findings upon review of outside records. At present, denies any active chest pain, shortness fo breath, palpitations, dizziness, syncope, orthopnea, paroxysmal nocturnal dyspnea, or any further cardiac related symptoms. Cardiology services were involved by primary team request for cardiac aspects of care. Left heart catheterization (07/2023) non-obstructive coronary artery disease, mild pulmonary hypertension type 2, increased EDP 16 mmHg Echocardiogram: (10/2023) EF 55%. Grade 2 diastolic dysfunction. Mild AR, RVSP 40 mmHg. Echocardiogram: (At Present) revealed LVEF of 50% with mild LVH Sinus bradycardia (asymptomatic), likely beta-rohit induced Epistaxis, likely secondary to concurrent AC exacerbated by oxygen therapy via N/C Deep vein thrombosis (history of), on anticoagulation therapy (outpatient), s/p IVC filter placement (08/16/2024) Thoracic aortic aneurysm, s/p previous endovascular repair ([facility]) Chronic diastolic heart failure, LVEF low-normal at 50% COPD, on home oxygen therapy Peripheral arterial disease Urinary tract infection Diabetes Mellitus ll Hyperlipidemia Hypertension Hypokalemia CARDIAC SUGGESTIONS FOR MANAGEMENT: Request for thyroid function test Given asymptomatic nature, no indication for PPM implantation warranted at present time Consider outpatient event monitoring to further evaluate underlying bradycardia To proceed with avoidance of AV lorenza blocking agents during the interim Proceed with close rate/rhythm surveillance during the interim Consider addition fo Atropine as needed for rate support Proceed with strict intakes, outputs, and daily weights Close observation for overt signs of fluid overload On Lasix 60mg po once daily for diuresis (for now) On Metolazone 5mg twice daily as for now Aspirin 81mg daily (as tolerate) Atorvastatin 20mg once daily Regular outpatient follow up with Vascular Surgery is advised To proceed with optimized blood pressure control Proceed with close rate and rhythm surveillance Proceed with close hemodynamic surveillance Transfuse to sustain HGB levels above 7.0 Sustain Magnesium level greater than 2.0 Sustain Potassium level greater than 4.0 Follow up renal function and electrolytes Management of co-morbidities as per primary team Consider ENT consultation/evaluation if warranted Management of Epistaxis as per primary team Management of UTI as per primary team Management in Telemetry Will proceed to follow from a cardiac perspective Further recommendations per clinical progression All available labs, EKGs, and images were personally reviewed Patient's status, findings, and plan of care was discussed and reviewed with supervising physician Dr. Becker, who is in agreement with current plan of care. Plan of care discussed with and agreed upon by patient/family/Primary RN. Prognosis: Guarded Thank you for allowing me to participate in the care of this patient. Further recommendations will depend on clinical progression, hospitalist, and other consultants. Will continue to follow with Primary. If you have any questions, please do not hesitate to contact me. A total of 75 minutes was spent reviewing the patient record, examining the patient, making a diagnostic and therapeutic plan, discussing this plan with medical personnel, following up on diagnostic studies and following the patient for clinical stability excluding Plan discussed with: Patient (Patient, Family, and Primary RN ) TODD LOCKE August 16, 2024 07:16
--- NOTE | 2024-08-16 12:21 | DVHPN2 ---
Reviewed: Care Plan, H&P, Labs, Medications, Previous Orders, Radiology Changes from previous H/P or p: No Changes Eyes: No Pain, No Vision change, No Conjunctivae inflammation, No Eyelid inflammation, No Other, No Redness ENT: No Ear pain, No Ear discharge, No Nose pain; Nose discharge (Nosebleed); No Nose congestion, No Mouth pain, No Mouth swelling, No Throat pain, No Throat swelling, No Other Cardiovascular: No Chest Pain, No Palpitations, No Orthopnea, No Paroxysmal Noc. Dyspnea, No Edema, No Lt Headedness, No Other Respiratory: No Cough, No Dry, No Shortness of breath, No SOB with excertion, No Wheezing, No Hemoptysis, No Pleuritic Pain, No Sputum, No Other Gastrointestinal: No Nausea, No Vomiting, No Abdominal Pain, No Diarrhea, No Constipation, No Melena, No Hematochezia, No Other Genitourinary: No Dysuria, No Frequency, No Incontinence, No Hematuria, No Retention, No Other Musculoskeletal: No other, No neck pain, No shoulder pain, No arm pain, No back pain, No hand pain, No leg pain, No foot pain Skin: No Rash, No Lesions, No Jaundice, No Bruising, No Other Objective Vitals Vital Signs Date Time Temp Pulse Resp B/P (MAP) Pulse Ox O2 Delivery O2 Flow Rate FiO2 08/16/24 09:42 144/68 08/16/24 09:00 98.7 66 19 95 98.7 08/15/24 20:00 Simple Mask* 8 60 Intake/Output Intake and Output 08/16/24 07:00 Intake Total 1200 ml Balance 1200 ml Intake Oral 1200 ml # Voids 3 # Bowel Movements 1 Medications Current Medications Medications Dose Ordered Sig/Eulalia Route Start Time Stop Time Status Last Admin Dose Admin Aspirin 81 mg DAILY PO 08/14/24 10:00 08/15/24 09:57 81 MG Atorvastatin Calcium 20 mg HS PO 08/13/24 22:00 08/15/24 22:26 20 MG Ceftriaxone Sodium 50 ml @ 100 mls/hr DAILY@09 IV 08/14/24 09:00 08/16/24 09:37 100 MLS/HR Famotidine 20 mg Q12HR IV 08/13/24 22:00 08/16/24 09:37 20 MG Dextrose 50 ml UD PRN IV 08/13/24 21:45 Sodium Chloride 10 ml Q8HR IV 08/13/24 22:00 08/16/24 06:00 10 ML Acetaminophen/ Hydrocodone Bitart 1 tab Q4HP PRN PO 08/13/24 21:45 Ondansetron HCl 4 mg Q4HP PRN IV 08/13/24 21:45 Docusate Sodium 100 mg BIDPRN PRN PO 08/13/24 21:45 Acetaminophen 650 mg Q6HP PRN PO 08/13/24 21:45 08/15/24 05:13 650 MG Nitroglycerin 0.4 mg Q5MINP PRN SL 08/13/24 23:30 Morphine Sulfate 2 mg Q30M PRN IV 08/13/24 23:30 Potassium Chloride 40 meq BID PO 08/14/24 22:00 08/15/24 22:26 40 MEQ Metolazone 5 mg BID PO 08/14/24 22:00 08/15/24 22:25 5 MG Furosemide 60 mg DAILY PO 08/15/24 10:00 Enoxaparin Sodium 100 mg DAILY SC 08/15/24 10:00 08/15/24 09:58 100 MG Melatonin 5 mg HS PO 08/16/24 22:00 Cancel Laboratory Results Laboratory Tests 08/15/24 10:57 Urinalysis Test 08/13/24 18:50 Urine Color Light-yellow (Yellow) Urine Clarity Turbid (Clear) H Urine pH 6.0 (5.0-9.0) Urine Specific [place] 1.008 (1.001-1.035) Urine Protein Negative (Negative) Urine Ketones Negative (Negative) Urine Blood Negative /uL (Negative) Urine Nitrite Negative (Negative) Urine Bilirubin Negative (Negative) Urine Urobilinogen Normal mg/dL (Negative) Urine Leukocyte Esterase 3+ /uL (Negative) Urine RBC 3 /hpf (0 - 4) Urine Microscopic WBC 132 /HPF (0-5) H Urine Squamous Epithelial Cells Few /hpf (<5) Urine Bacteria None seen /hpf (None Seen) Urine Hyaline Casts Few /lpf (0 - 2) Urine Glucose Normal mg/dL (Normal) Microbiology Microbiology Date/Time Source Procedure Growth Status 08/13/24 18:50 Voided Urine Urine Culture - Final Enterococcus faecalis Citrobacter koseri Complete Labs and/or images reviewed: Labs reviewed by me, Image(s) reviewed by me Assessment/Plan Assessment/Plan Bradycardia heart rate 50: Consult for Dr. Resendiz appreciated Epistaxis resolved, hold Eliquis, cardiology started on Lovenox therapeutic dose Urinary tract infection: Urine cultures Rocephin Morbid obesity Generalized weakness Patient awaiting IVC filter placement today Repeat echo pending CT chest without contrast result pending History of repair of ascending descending and abdominal aortic aneurysms at [facility] History of TAVR CHF Diabetes Hypercholesterolemia Hypertension Gout Acute hypokalemia potassium 3.2: Replace potassium Daughter Gisela [phone] Silvina mina Time Spent 50 minutes Advanced care planning time 20 minutes General Condition poor because of multiple comorbidities Plan discussed with: Patient Date of Service: August 16, 2024 Billing Provider: ANNA GOODWIN MD Common Visit Codes: 85084-[id number] INP/OBS CARE(HIGH) ANNA GOODWIN MD August 16, 2024 12:21
[2024-08-16] MEDS: fentaNYL CITRATE 100 MCG/2 ML VL ONE (12:26)
[2024-08-16] MEDS: LIDOCAINE 2%HCL (LOCAL ANESTH.) INJ 10ml MDV ONE (12:26)
[2024-08-16] MEDS: MIDAZOLAM HCL 2MG/2ML 2ml VIAL (1mg/ml) ONE (12:26)
[2024-08-16] MEDS: IODIXANOL 320MG/ML 100ML BTL IV ONE (12:34)
--- NOTE | 2024-08-16 14:26 | DVHSR ---
APPROVED REPORT EXAM: Two-dimensional and M-mode echocardiogram with Doppler and color Doppler. Blood Pressure: 139/34 mmHg INDICATION Acute on chronic diastolic heart failure RISK FACTORS Obesity: Height: 5', Weight: 221 DIMENSIONS LVDd4.5 (3.8-5.7cm)LA (2D)4.2 (1.9-4.0cm)Aortic Root3.2 (2.0-3.7cm) LVDs3.2 (2.5-4.0cm)LA (MM) (1.9-4.0cm)Aortic Cusp Exc2.0 (1.5-2.0cm) EF (%) 56.0 (55-70%)Rt. Atrium4.1 (1.9-4.0cm)Asc. Aorta cm IVSd1.0 (0.7-1.1cm)RV (D) (1.8-2.4cm) PWd1.2 (0.7-1.1cm) Mitral Valve MitralMitral Stenosis E wave1.40m/sMV Mean GR.mmHg A wave1.00m/sMV Peak GR.mmHg E/A ratio1.42D MVAcm2 Aortic Valve Aortic ValveAortic Stenosis V11.00m/Tasha Mean GR.3mmHg V21.30m/Tasha Peak GR.7mmHg LVOT Diameter2.1 (1.8-2.4cm)Doppler AVA2.66cm2 AI P 1/2 Guac136.49ms Pulmonic Valve V20.70m/s Tricuspid Valve TR Velocity2.80m/s [id number] Conclusion lvef 50% mild LVH normal rv function left atrium enlarged
--- NOTE | 2024-08-16 15:06 | DVH ---
XY INFERIOR VENA CAVA FILTER, HISTORY: FILTER PL with history of DVT and will be off anticoagulation. PROCEDURE: Informed consent was obtained. The patient was placed on the fluoroscopic table in supine position. The right neck was prepped with chlorhexidine which was allowed to dry and draped in the [facility] sterile fashion. Time out was performed. Following administration of 1% local lidocaine, the inte rnal jugular vein was accessed with a micropuncture set under ultrasound guidance, and an image docum enting patency sent to PACS. A cavogram was performed and the level of the renal veins were identifi ed. The catheter was exchanged for a 9.6 [place] introducer sheath, and a Bard G2 Caro IVC filter wa s deployed in an infrarenal location. The introducer sheath was removed and the venotomy closed with manual compression. Post-deployment image was obtained. No immediate complication was identified. DAP 982 FLUOROSCOPY TIME: 2.7 minutes. CONTRAST USED: 20 mL . SEDATION: Dr. Favio Mcginnis was personally responsible for the administration of moderate sedation during the procedure performed, including the use of an independent trained observer who had no other duties during the procedure. The drugs utilized were IV fentanyl and versed (see nursing log for details). The total time of supervision by the attending physician was approximately 45 minutes. FINDINGS: There is a patent single IVC visualized without intraluminal filling defect. No renal venou s anomaly is noted. Post-procedure image demonstrates good positioning of the IVC filter in an infrar enal position. IMPRESSION: Infrarenal IVC filter placement. PLAN: Consideration should be made for removal of this retrievable filter after and if medical necess ity for caval filtration is no longer present. If we in IR are unable to contact the patient in a asif rico fashion, please contact our office, and we will attempt to arrange for filter retrieval at the ea rliest convenience.
[2024-08-16] MEDS ORDERED: MELATONIN 5 MG TAB PO SCH (22:00)
[2024-08-17] VITALS (10 sets, daily range): BP systolic 100–163; BP diastolic 34–50; PULSE 56–76; RESP 16–20; TEMP 97.9–99.3; O2SAT 93–98
--- NOTE | 2024-08-17 07:41 | DVHPN2 ---
Progress Note - Dictate Date Seen: August 17, 2024 Medical Necessity Reason Pt with a Central, PICC or Fol: No vital signs Vital Sign Date Time Temp Pulse Resp B/P (MAP) Pulse Ox O2 Delivery O2 Flow Rate FiO2 08/17/24 05:00 99.3 62 19 100/43 (62) 96 99.3 08/16/24 20:00 Simple Mask* 6 50 Total Intake and Output 08/16/24 08/16/24 08/17/24 15:00 23:00 07:00 Intake Total 50 ml 318 ml 0 ml Balance 50 ml 318 ml 0 ml medications Current Medications Medications Dose Ordered Sig/Eulalia Route Start Time Stop Time Status Last Admin Dose Admin Aspirin 81 mg DAILY PO 08/14/24 10:00 08/15/24 09:57 81 MG Atorvastatin Calcium 20 mg HS PO 08/13/24 22:00 08/16/24 21:26 20 MG Ceftriaxone Sodium 50 ml @ 100 mls/hr DAILY@09 IV 08/14/24 09:00 08/16/24 09:37 100 MLS/HR Famotidine 20 mg Q12HR IV 08/13/24 22:00 08/16/24 21:25 20 MG Dextrose 50 ml UD PRN IV 08/13/24 21:45 Sodium Chloride 10 ml Q8HR IV 08/13/24 22:00 08/16/24 22:02 10 ML Acetaminophen/ Hydrocodone Bitart 1 tab Q4HP PRN PO 08/13/24 21:45 Ondansetron HCl 4 mg Q4HP PRN IV 08/13/24 21:45 Docusate Sodium 100 mg BIDPRN PRN PO 08/13/24 21:45 Acetaminophen 650 mg Q6HP PRN PO 08/13/24 21:45 08/17/24 04:01 650 MG Nitroglycerin 0.4 mg Q5MINP PRN SL 08/13/24 23:30 Morphine Sulfate 2 mg Q30M PRN IV 08/13/24 23:30 Potassium Chloride 40 meq BID PO 08/14/24 22:00 08/16/24 21:26 40 MEQ Metolazone 5 mg BID PO 08/14/24 22:00 08/16/24 21:26 5 MG Furosemide 60 mg DAILY PO 08/15/24 10:00 Enoxaparin Sodium 100 mg DAILY SC 08/15/24 10:00 08/15/24 09:58 100 MG Melatonin 5 mg HS PO 08/16/24 22:00 Cancel laboratory and microbiology Laboratory Tests 08/15/24 10:57 Test 08/15/24 10:57 Range/Units Serum Glucose 146 H 74-106 mg/dL Assessment/Plan ASSESSMENT: The patient is an 78-year-old female who initially presented to the emergency department on 08/13/2024 with complaints of epistaxis. She had previously been on Eliquis 5mg twice daily in the setting of prior lower extremity DVT. Patient is known to utilize home oxygen which could have attributed to the clinical picture. Initial HGB level was found to be 10.6 with an INR of 1.14. Upon ED arrival, patient was furthermore found bradycardic (asymptomatic) which it is of note, patient is known to take Metoprolol Succinate 25mg daily which could have attributed to the bradycardia. Initial HS troponin was found normal at 6. BNP was found elevated at 248 which subsequent chest imaging had revealed no evidence for vascular congestion. Patient does have known history of diastolic heart failure which Echocardiogram has revealed a low-normal LVEF of 50% with mild left ventricular hypertrophy. Of note patient does have known history of previous TAA and is status post previous endovascular repair performed at [facility] which at present Chest Chest (without contrast) had revealed known presence of TAA measuring up to 6.4cm (ascending) and 6.3cm (descending) which is considered stable in comparison to previous findings upon review of outside records. At present, denies any active chest pain, shortness fo breath, palpitations, dizziness, syncope, orthopnea, paroxysmal nocturnal dyspnea, or any further cardiac related symptoms. Cardiology services were involved by primary team request for cardiac aspects of care. Left heart catheterization (07/2023) non-obstructive coronary artery disease, mild pulmonary hypertension type 2, increased EDP 16 mmHg Echocardiogram: (10/2023) EF 55%. Grade 2 diastolic dysfunction. Mild AR, RVSP 40 mmHg. Echocardiogram: (At Present) revealed LVEF of 50% with mild LVH TSH: 5.13/Free T: 2.35 Sinus bradycardia (asymptomatic), likely beta-rohit induced, improving Epistaxis, likely secondary to concurrent AC exacerbated by oxygen therapy via N/C Deep vein thrombosis (history of), on anticoagulation therapy (outpatient), s/p IVC filter placement (08/16/2024) Thoracic aortic aneurysm, s/p previous endovascular repair ([facility]) Chronic diastolic heart failure, LVEF low-normal at 50% COPD, on home oxygen therapy Peripheral arterial disease Urinary tract infection Diabetes Mellitus ll Hyperlipidemia Hypertension Hypokalemia CARDIAC SUGGESTIONS FOR MANAGEMENT: Trial low-dose Eliquis 2.5mg twice daily as for now Given asymptomatic nature, no indication for PPM implantation warranted at present time Consider outpatient event monitoring to further evaluate underlying bradycardia To proceed with avoidance of AV lorenza blocking agents during the interim Proceed with close rate/rhythm surveillance during the interim Consider addition fo Atropine as needed for rate support Proceed with strict intakes, outputs, and daily weights Close observation for overt signs of fluid overload On Lasix 60mg po once daily for diuresis (for now) On Metolazone 5mg twice daily as for now Aspirin 81mg daily (as tolerate) Atorvastatin 20mg once daily Regular outpatient follow up with Vascular Surgery is advised To proceed with optimized blood pressure control Proceed with close rate and rhythm surveillance Proceed with close hemodynamic surveillance Transfuse to sustain HGB levels above 7.0 Sustain Magnesium level greater than 2.0 Sustain Potassium level greater than 4.0 Follow up renal function and electrolytes Management of co-morbidities as per primary team Consider ENT consultation/evaluation if warranted Management of Epistaxis as per primary team Management of UTI as per primary team Management in Telemetry Will proceed to follow from a cardiac perspective Further recommendations per clinical progression All available labs, EKGs, and images were personally reviewed Patient's status, findings, and plan of care was discussed and reviewed with supervising physician Dr. Becker, who is in agreement with current plan of care. Plan of care discussed with and agreed upon by patient/family/Primary RN. Prognosis: Guarded Thank you for allowing me to participate in the care of this patient. Further recommendations will depend on clinical progression, hospitalist, and other consultants. Will continue to follow with Primary. If you have any questions, please do not hesitate to contact me. A total of 75 minutes was spent reviewing the patient record, examining the patient, making a diagnostic and therapeutic plan, discussing this plan with medical personnel, following up on diagnostic studies and following the patient for clinical stability excluding Plan discussed with: Patient (Patient, Family, and Primary RN ) TODD LOCKE [employer] PROGRAMS MANAGER August 17, 2024 07:41
[2024-08-17 09:47] LABS: Chloride 103 mmol/L (98-107); Potassium 3.9 mmol/L (3.5-5.1); Sodium 142 mmol/L (136-145)
[2024-08-17 09:48] LABS: Anion Gap 8 (5-15); Calcium 9.9 mg/dL (8.7-10.4); Carbon Dioxide 31 mmol/L (20-31)
[2024-08-17 09:53] LABS: BUN/Creatinine Ratio 22.7 (10.0-20.0); Magnesium 1.9 mg/dL (1.6-2.6)
[2024-08-17 09:54] LABS: Blood Urea Nitrogen 25 mg/dL (9-23); Glucose 122 mg/dL (74-106)
[2024-08-17 11:02] LABS: Basophils # (auto) 0.1 10 ^3/uL (0-0.2); Basophils % (auto) 0.9 % (0.0-2.0); Eosinophils # (auto) 0.2 10 ^3/uL (0-0.8); Eosinophils % (auto) 2.2 % (0.0-7.0); Hemoglobin 9.4 g/dL (12.2-16.2)
[2024-08-17 11:04] LABS: Hematocrit 29.6 % (36.0-46.0); Lymphocytes % (auto) 13.6 % (10.0-50.0); Mean Corpuscular Hemoglobin 25.6 pg (28.0-32.0); Mean Corpuscular Hgb Conc. 31.7 g/dL (32.0-36.0); Mean Corpuscular Volume 80.8 fL (80.0-100.0); Monocytes # (auto) 0.4 10 ^3/uL (0-1.3); Monocytes % (auto) 5.5 % (0.0-12.0); Neutrophils # (auto) 5.9 10 ^3/uL (1.6-8.6); Neutrophils % (auto) 77.8 % (37.0-80.0); Platelet Count (auto) 236 10^3/uL (140-450); Red Blood Cells 3.67 10^6/uL (4.0-5.20); White Blood Cell 7.6 10^3/uL (4.4-10.8)
[2024-08-17 11:05] LABS: Red Cell Distribution Width 21.3 % (11.8-14.3)
[2024-08-17] MEDS: ONDANSETRON HCL 4 MG/2 ML VIAL IV PRN (11:15)
--- NOTE | 2024-08-17 12:36 | DVHPN2 ---
Reviewed: Care Plan, H&P, Labs, Medications, Previous Orders, Radiology Changes from previous H/P or p: No Changes Eyes: No Pain, No Vision change, No Conjunctivae inflammation, No Eyelid inflammation, No Other, No Redness ENT: No Ear pain, No Ear discharge, No Nose pain; Nose discharge (Nosebleed); No Nose congestion, No Mouth pain, No Mouth swelling, No Throat pain, No Throat swelling, No Other Cardiovascular: No Chest Pain, No Palpitations, No Orthopnea, No Paroxysmal Noc. Dyspnea, No Edema, No Lt Headedness, No Other Respiratory: No Cough, No Dry, No Shortness of breath, No SOB with excertion, No Wheezing, No Hemoptysis, No Pleuritic Pain, No Sputum, No Other Gastrointestinal: No Nausea, No Vomiting, No Abdominal Pain, No Diarrhea, No Constipation, No Melena, No Hematochezia, No Other Genitourinary: No Dysuria, No Frequency, No Incontinence, No Hematuria, No Retention, No Other Musculoskeletal: No other, No neck pain, No shoulder pain, No arm pain, No back pain, No hand pain, No leg pain, No foot pain Skin: No Rash, No Lesions, No Jaundice, No Bruising, No Other Objective Vitals Vital Signs Date Time Temp Pulse Resp B/P (MAP) Pulse Ox O2 Delivery O2 Flow Rate FiO2 08/17/24 09:51 131/42 08/17/24 09:00 98.0 60 16 98 98.0 08/17/24 08:00 Simple Mask* 6 50 Intake/Output Intake and Output 08/17/24 07:00 Intake Total 368 ml Balance 368 ml Intake Oral 318 ml IV Total 50 ml # Voids 3 # Bowel Movements 2 Medications Current Medications Medications Dose Ordered Sig/Eulalia Route Start Time Stop Time Status Last Admin Dose Admin Aspirin 81 mg DAILY PO 08/14/24 10:00 08/17/24 09:49 81 MG Atorvastatin Calcium 20 mg HS PO 08/13/24 22:00 08/16/24 21:26 20 MG Ceftriaxone Sodium 50 ml @ 100 mls/hr DAILY@09 IV 08/14/24 09:00 08/17/24 09:49 100 MLS/HR Famotidine 20 mg Q12HR IV 08/13/24 22:00 08/17/24 09:49 20 MG Dextrose 50 ml UD PRN IV 08/13/24 21:45 Sodium Chloride 10 ml Q8HR IV 08/13/24 22:00 08/16/24 22:02 10 ML Acetaminophen/ Hydrocodone Bitart 1 tab Q4HP PRN PO 08/13/24 21:45 Ondansetron HCl 4 mg Q4HP PRN IV 08/13/24 21:45 08/17/24 11:15 4 MG Docusate Sodium 100 mg BIDPRN PRN PO 08/13/24 21:45 Acetaminophen 650 mg Q6HP PRN PO 08/13/24 21:45 08/17/24 04:01 650 MG Nitroglycerin 0.4 mg Q5MINP PRN SL 08/13/24 23:30 Morphine Sulfate 2 mg Q30M PRN IV 08/13/24 23:30 Potassium Chloride 40 meq BID PO 08/14/24 22:00 08/17/24 09:50 40 MEQ Metolazone 5 mg BID PO 08/14/24 22:00 08/17/24 09:51 5 MG Furosemide 60 mg DAILY PO 08/15/24 10:00 08/17/24 09:50 60 MG Enoxaparin Sodium 100 mg DAILY SC 08/15/24 10:00 08/17/24 09:58 100 MG Melatonin 5 mg HS PO 08/16/24 22:00 Cancel Laboratory Results Laboratory Tests 08/17/24 08:54 Chemistry Test 08/17/24 08:54 Calcium Level 9.9 mg/dL (8.7-10.4) Magnesium Level 1.9 mg/dL (1.6-2.6) HgA1c, TSH Test 08/16/24 18:21 Thyroid Stimulating Hormone (TSH) 5.13 uIU/mL (0.55-4.78) H Urinalysis Test 08/13/24 18:50 Urine Color Light-yellow (Yellow) Urine Clarity Turbid (Clear) H Urine pH 6.0 (5.0-9.0) Urine Specific [place] 1.008 (1.001-1.035) Urine Protein Negative (Negative) Urine Ketones Negative (Negative) Urine Blood Negative /uL (Negative) Urine Nitrite Negative (Negative) Urine Bilirubin Negative (Negative) Urine Urobilinogen Normal mg/dL (Negative) Urine Leukocyte Esterase 3+ /uL (Negative) Urine RBC 3 /hpf (0 - 4) Urine Microscopic WBC 132 /HPF (0-5) H Urine Squamous Epithelial Cells Few /hpf (<5) Urine Bacteria None seen /hpf (None Seen) Urine Hyaline Casts Few /lpf (0 - 2) Urine Glucose Normal mg/dL (Normal) Microbiology Microbiology Date/Time Source Procedure Growth Status 08/13/24 18:50 Voided Urine Urine Culture - Final Enterococcus faecalis Citrobacter koseri Complete Labs and/or images reviewed: Labs reviewed by me, Image(s) reviewed by me Assessment/Plan Assessment/Plan Bradycardia heart rate 50: Consult for Dr. Resendiz appreciated Epistaxis resolved, hold Eliquis, cardiology started on Lovenox therapeutic dose Urinary tract infection: Urine cultures Rocephin Morbid obesity Generalized weakness Status post IVC filter placement through right IJ by radiologist Dr. Mcginnis on 08/16/[address] chest without contrast result pending History of repair of ascending descending and abdominal aortic aneurysms at [facility] History of TAVR CHF Diabetes Hypercholesterolemia Hypertension Gout Acute hypokalemia potassium 3.2: Replace potassium Daughter Gisela [phone] Silvina mina Time Spent 50 minutes Advanced care planning time 20 minutes General Condition poor because of multiple comorbidities Will await cardiac clearance for discharge Cardiology thinking of reducing Eliquis dosage. Plan discussed with: Patient My Orders Orders - ANNA GOODWIN MD Procedure Category Date Status Time Inferior Vena Cava XY 08/16/24 Resulted Filter 14:29 Date of Service: August 17, 2024 Billing Provider: ANNA GOODWIN MD Common Visit Codes: [id number] INP/OBS CARE(HIGH) ANNA GOODWIN MD August 17, 2024 12:36
[2024-08-17] MEDS: APIXABAN 5 MG TAB PO SCH (21:06)
[2024-08-17] MEDS: LISINOPRIL 5 MG TAB PO ONE (21:09)
[2024-08-18 01:03] VITALS: BP 139/35; PULSE 63; RESP 20; TEMP 98; O2SAT 98
[2024-08-18 05:00] VITALS: BP 125/32; PULSE 56; RESP 20; TEMP 97.9; O2SAT 100
--- NOTE | 2024-08-18 07:17 | DVHPN2 ---
Progress Note - Dictate Date Seen: August 18, 2024 Medical Necessity Reason Pt with a Central, PICC or Fol: No vital signs Vital Sign Date Time Temp Pulse Resp B/P (MAP) Pulse Ox O2 Delivery O2 Flow Rate FiO2 08/18/24 05:00 97.9 56 20 125/32 (63) 100 97.9 08/17/24 20:00 Simple Mask* 6 50 Total Intake and Output 08/17/24 08/17/24 08/18/24 15:00 23:00 07:00 Intake Total 350 ml 640 ml Balance 350 ml 640 ml medications Current Medications Medications Dose Ordered Sig/Eulalia Route Start Time Stop Time Status Last Admin Dose Admin Aspirin 81 mg DAILY PO 08/14/24 10:00 08/17/24 09:49 81 MG Atorvastatin Calcium 20 mg HS PO 08/13/24 22:00 08/17/24 21:06 20 MG Ceftriaxone Sodium 50 ml @ 100 mls/hr DAILY@09 IV 08/14/24 09:00 08/17/24 09:49 100 MLS/HR Famotidine 20 mg Q12HR IV 08/13/24 22:00 08/17/24 21:07 20 MG Dextrose 50 ml UD PRN IV 08/13/24 21:45 Sodium Chloride 10 ml Q8HR IV 08/13/24 22:00 08/18/24 05:58 10 ML Acetaminophen/ Hydrocodone Bitart 1 tab Q4HP PRN PO 08/13/24 21:45 Ondansetron HCl 4 mg Q4HP PRN IV 08/13/24 21:45 08/17/24 11:15 4 MG Docusate Sodium 100 mg BIDPRN PRN PO 08/13/24 21:45 Acetaminophen 650 mg Q6HP PRN PO 08/13/24 21:45 08/18/24 00:41 650 MG Nitroglycerin 0.4 mg Q5MINP PRN SL 08/13/24 23:30 Morphine Sulfate 2 mg Q30M PRN IV 08/13/24 23:30 Potassium Chloride 40 meq BID PO 08/14/24 22:00 08/17/24 21:07 40 MEQ Metolazone 5 mg BID PO 08/14/24 22:00 08/17/24 21:06 5 MG Furosemide 60 mg DAILY PO 08/15/24 10:00 08/17/24 09:50 60 MG Melatonin 5 mg HS PO 08/16/24 22:00 Cancel Apixaban 2.5 mg BID PO 08/17/24 22:00 08/17/24 21:06 2.5 MG laboratory and microbiology Laboratory Tests 08/17/24 08:54 Test 08/17/24 08:54 Range/Units Serum Glucose 122 H 74-106 mg/dL Assessment/Plan ASSESSMENT: The patient is an 78-year-old female who initially presented to the emergency department on 08/13/2024 with complaints of epistaxis. She had previously been on Eliquis 5mg twice daily in the setting of prior lower extremity DVT. Patient is known to utilize home oxygen which could have attributed to the clinical picture. Initial HGB level was found to be 10.6 with an INR of 1.14. Upon ED arrival, patient was furthermore found bradycardic (asymptomatic) which it is of note, patient is known to take Metoprolol Succinate 25mg daily which could have attributed to the bradycardia. Initial HS troponin was found normal at 6. BNP was found elevated at 248 which subsequent chest imaging had revealed no evidence for vascular congestion. Patient does have known history of diastolic heart failure which Echocardiogram has revealed a low-normal LVEF of 50% with mild left ventricular hypertrophy. Of note patient does have known history of previous TAA and is status post previous endovascular repair performed at [facility] which at present Chest Chest (without contrast) had revealed known presence of TAA measuring up to 6.4cm (ascending) and 6.3cm (descending) which is considered stable in comparison to previous findings upon review of outside records. At present, denies any active chest pain, shortness fo breath, palpitations, dizziness, syncope, orthopnea, paroxysmal nocturnal dyspnea, or any further cardiac related symptoms. Cardiology services were involved by primary team request for cardiac aspects of care. Left heart catheterization (07/2023) non-obstructive coronary artery disease, mild pulmonary hypertension type 2, increased EDP 16 mmHg Echocardiogram: (10/2023) EF 55%. Grade 2 diastolic dysfunction. Mild AR, RVSP 40 mmHg. Echocardiogram: (At Present) revealed LVEF of 50% with mild LVH TSH: 5.13/Free T: 2.35 Sinus bradycardia (asymptomatic), likely beta-rohit induced, improving Epistaxis, likely secondary to concurrent AC exacerbated by oxygen therapy via N/C Deep vein thrombosis (history of), on anticoagulation therapy (outpatient), s/p IVC filter placement (08/16/2024) Thoracic aortic aneurysm, s/p previous endovascular repair ([facility]) Chronic diastolic heart failure, LVEF low-normal at 50% COPD, on home oxygen therapy Peripheral arterial disease Urinary tract infection Diabetes Mellitus ll Hyperlipidemia Hypertension Hypokalemia CARDIAC SUGGESTIONS FOR MANAGEMENT: Tolerating low-dose Eliquis 2.5mg twice daily as for now Given asymptomatic nature, no indication for PPM implantation warranted at present time Consider outpatient event monitoring to further evaluate underlying bradycardia To proceed with avoidance of AV lorenza blocking agents during the interim Proceed with close rate/rhythm surveillance during the interim Consider addition fo Atropine as needed for rate support Proceed with strict intakes, outputs, and daily weights Close observation for overt signs of fluid overload On Lasix 60mg po once daily for diuresis (for now) On Metolazone 5mg twice daily as for now Aspirin 81mg daily (as tolerate) Atorvastatin 20mg once daily Regular outpatient follow up with Vascular Surgery is advised To proceed with optimized blood pressure control Proceed with close rate and rhythm surveillance Proceed with close hemodynamic surveillance Transfuse to sustain HGB levels above 7.0 Sustain Magnesium level greater than 2.0 Sustain Potassium level greater than 4.0 Follow up renal function and electrolytes Management of co-morbidities as per primary team Consider ENT consultation/evaluation if warranted Management of Epistaxis as per primary team Management of UTI as per primary team Management in Telemetry Will proceed to follow from a cardiac perspective Further recommendations per clinical progression All available labs, EKGs, and images were personally reviewed Patient's status, findings, and plan of care was discussed and reviewed with supervising physician Dr. Becker, who is in agreement with current plan of care. Plan of care discussed with and agreed upon by patient/family/Primary RN. Prognosis: Guarded Thank you for allowing me to participate in the care of this patient. Further recommendations will depend on clinical progression, hospitalist, and other consultants. Will continue to follow with Primary. If you have any questions, please do not hesitate to contact me. A total of 75 minutes was spent reviewing the patient record, examining the patient, making a diagnostic and therapeutic plan, discussing this plan with medical personnel, following up on diagnostic studies and following the patient for clinical stability excluding Plan discussed with: Patient (Patient, Family, Primary RN ) TODD LOCKE August 18, 2024 07:17
[2024-08-18 08:00] VITALS: PULSE 62; PULSE 71; RESP 16; O2SAT 95
[2024-08-18 09:00] VITALS: BP 133/35; PULSE 62; RESP 16; TEMP 98; O2SAT 94
[2024-08-18 09:17] LABS: Chloride 102 mmol/L (98-107); Potassium 3.9 mmol/L (3.5-5.1); Sodium 140 mmol/L (136-145)
[2024-08-18 09:18] LABS: Anion Gap 7 (5-15); Calcium 9.7 mg/dL (8.7-10.4); Carbon Dioxide 31 mmol/L (20-31)
[2024-08-18 09:24] LABS: Basophils # (auto) 0.1 10 ^3/uL (0-0.2); Blood Urea Nitrogen 21 mg/dL (9-23); Eosinophils # (auto) 0.2 10 ^3/uL (0-0.8); Eosinophils % (auto) 2.9 % (0.0-7.0); Hematocrit 29.1 % (36.0-46.0); Hemoglobin 9.4 g/dL (12.2-16.2); Lymphocytes # (auto) 0.9 10 ^3/uL (0.4-5.4); Lymphocytes % (auto) 14.3 % (10.0-50.0); Mean Corpuscular Hemoglobin 26.1 pg (28.0-32.0); Mean Corpuscular Hgb Conc. 32.3 g/dL (32.0-36.0); Mean Corpuscular Volume 80.7 fL (80.0-100.0); Monocytes # (auto) 0.4 10 ^3/uL (0-1.3); Monocytes % (auto) 6.5 % (0.0-12.0); Neutrophils % (auto) 75.3 % (37.0-80.0); Nucleated Red Blood Cells % 0.1 %; Platelet Count (auto) 234 10^3/uL (140-450); Red Blood Cells 3.61 10^6/uL (4.0-5.20); Red Cell Distribution Width 21.3 % (11.8-14.3); White Blood Cell 6.6 10^3/uL (4.4-10.8)
[2024-08-18 09:33] LABS: BUN/Creatinine Ratio 18.3 (10.0-20.0); Glucose 143 mg/dL (74-106)
[2024-08-18] MEDS ORDERED: LEVO500T91 PO (10:35)
[2024-08-18] MEDS ORDERED: LINE1TAB6 PO (10:35)
--- NOTE | 2024-08-18 10:41 | DVHDS2 ---
Discharge Summary Date of Admission August 13, 2024 at 23:19 Date of Discharge: August 18, 2024 Admitting Diagnosis Slow heart rate Wounds: IVC filter placement Labs/Diagnostic Data: Laboratory Results Test 08/18/24 08:27 08/17/24 08:54 08/16/24 18:21 08/15/24 10:57 White Blood Count 6.6 10^3/uL (4.4-10.8) Red Blood Count 3.61 10^6/uL (4.0-5.20) Hemoglobin 9.4 g/dL (12.2-16.2) Hematocrit 29.1 % (36.0-46.0) Mean Corpuscular Volume 80.7 fL (80.0-100.0) Mean Corpuscular Hemoglobin 26.1 pg (28.0-32.0) Mean Corpuscular Hemoglobin Concent 32.3 g/dL (32.0-36.0) Red Cell Distribution Width 21.3 % (11.8-14.3) Platelet Count 234 10^3/uL (140-450) Mean Platelet Volume 7.1 fL (6.9-10.8) Neutrophils (%) (Auto) 75.3 % (37.0-80.0) Lymphocytes (%) (Auto) 14.3 % (10.0-50.0) Monocytes (%) (Auto) 6.5 % (0.0-12.0) Eosinophils (%) (Auto) 2.9 % (0.0-7.0) Basophils (%) (Auto) 1.0 % (0.0-2.0) Neutrophils # (Auto) 5.0 10 ^3/uL (1.6-8.6) Lymphocytes # (Auto) 0.9 10 ^3/uL (0.4-5.4) Monocytes # (Auto) 0.4 10 ^3/uL (0-1.3) Eosinophils # (Auto) 0.2 10 ^3/uL (0-0.8) Basophils # (Auto) 0.1 10 ^3/uL (0-0.2) Nucleated Red Blood Cells 0.1 % Sodium Level 140 mmol/L (136-145) Potassium Level 3.9 mmol/L (3.5-5.1) Chloride Level 102 mmol/L (98-107) Carbon Dioxide Level 31 mmol/L (20-31) Anion Gap 7 (5-15) Blood Urea Nitrogen 21 mg/dL (9-23) Creatinine 1.15 mg/dL (0.550-1.02) Glomerular Filtration Rate Calc 48 mL/min (>90) BUN/Creatinine Ratio 18.3 (10.0-20.0) Serum Glucose 143 mg/dL (74-106) Calcium Level 9.7 mg/dL (8.7-10.4) Magnesium Level 1.9 mg/dL (1.6-2.6) Thyroid Stimulating Hormone (TSH) 5.13 uIU/mL (0.55-4.78) Free Triiodothyronine (T3) pg/mL 2.35 pg/mL (2.3-4.2) Total Bilirubin 0.4 mg/dL (0.2-1.0) Aspartate Amino Transferase (AST) 14 U/L (13-40) Alanine Aminotransferase (ALT) 13 U/L (7-40) Alkaline Phosphatase 122 U/L (46-116) Total Protein 6.4 g/dL (5.7-8.2) Albumin 3.7 g/dL (3.2-4.8) Test 08/13/24 18:50 08/13/24 15:09 08/13/24 13:54 Urine Color Light-yellow (Yellow) Urine Clarity Turbid (Clear) Urine pH 6.0 (5.0-9.0) Urine Specific [place] 1.008 (1.001-1.035) Urine Protein Negative (Negative) Urine Ketones Negative (Negative) Urine Blood Negative /uL (Negative) Urine Nitrite Negative (Negative) Urine Bilirubin Negative (Negative) Urine Urobilinogen Normal mg/dL (Negative) Urine Leukocyte Esterase 3+ /uL (Negative) Urine RBC 3 /hpf (0 - 4) Urine Microscopic WBC 132 /HPF (0-5) Urine Squamous Epithelial Cells Few /hpf (<5) Urine Bacteria None seen /hpf (None Seen) Urine Hyaline Casts Few /lpf (0 - 2) Urine Glucose Normal mg/dL (Normal) Troponin I High Sensitivity 6 ng/L (</=34) Prothrombin Time 11.9 sec (9.3-11.8) Prothrombin Time INR 1.14 (0.9-1.15) Activated Partial Thromboplast Time 35.0 SEC (24.5-34.5) B-Type Natriuretic Peptide 248.42 pg/mL (0-100) Other Laboratory Tests 08/18/24 08:27 Brief Hx & Hospital Course: 78-year-old female with a history of repair of ascending descending and abdominal aortic aneurysm at [facility] history of TAVR CHF diabetes hypertension hypercholesterolemia gout came in for dialysis low heart rate of 50. And epistaxis which was controlled by the ER Seen by her glost kiln operator Dr Resendiz. for bradycardia. In view of the epistaxis and need for DVT prophylaxis IVC filter was placed by the radiologist adiel and dosage of Eliquis has been [place] to 2.5 mg p.o. 2 times a day other medications were continued. Cleared for discharge by Cardiology discharged home patient had UTI treated with Rocephin cultures came positive for E faecalis and Citrobacter prescription for Zyvox and Levaquin transmitted to the pharmacy Condition satisfactory at the time of discharge. Patient is on home oxygen Consults/Reason for consult Cardiology Dr. Resendiz Operations or Procedures Cardiology Dr. Resendiz Condition at Discharge: Fair Final Diagnosis/Problems List Bradycardia heart rate 50: Consult for Dr. Resendiz appreciated Epistaxis resolved, hold Eliquis, cardiology started on Lovenox therapeutic dose Urinary tract infection: Urine cultures growing E faecalis and Citrobacter we will give a prescription for Zyvox and Levaquin Morbid obesity Generalized weakness Status post IVC filter placement through right IJ by radiologist Dr. Mcginnis on 08/16/[address] chest without contrast result pending History of repair of ascending descending and abdominal aortic aneurysms at [facility] History of TAVR CHF Diabetes Hypercholesterolemia Hypertension Gout Acute hypokalemia potassium 3.2: Replace potassium Discharge Disposition: Home Discharge Instruct/Medications Diet: Cardiac 2g Na,low cholest Activity: Light activity Follow Up/Referral: Dosage of Eliquis has been reduced to 2.5 mg p.o. 2 times a day Keep Your appointment with Dr. Resendiz on 08/17/2024Friday Medications: Levaquin Zyvox Transmitted to pharmacy 39 (Time taken for discharge summary 39 minutes) Discharge Statement: "Patient was advised to return to the ER or call 911 if any headaches, dizziness, shortness of breath, chest pain, abdominal pain, bleeding, fevers, or worsening of medical condition. Patient was counseled about treatment plan, medications, possible side effects, patientverbalized understanding. All questions were answered to the best of my ability. This discharge took greater then 30 minutes in planning, reviewing documentation, counseling the patient, and discussing with other team members." ASSESSMENT ASSESSMENT Assessment Bradycardia heart rate 50: Consult for Dr. Resendiz appreciated Epistaxis resolved, hold Eliquis, cardiology started on Lovenox therapeutic dose Urinary tract infection: Urine cultures growing E faecalis and Citrobacter we will give a prescription for Zyvox and Levaquin Morbid obesity Generalized weakness Status post IVC filter placement through right IJ by radiologist Dr. Mcginnis on 08/16/[address] chest without contrast result pending History of repair of ascending descending and abdominal aortic aneurysms at [facility] History of TAVR CHF Diabetes Hypercholesterolemia Hypertension Gout Acute hypokalemia potassium 3.2: Replace potassium Date of Service: August 18, 2024 Billing Provider: ANNA GOODWIN MD Common Visit Codes: [id number] DISCH DAY >30min ANNA GOODWIN MD August 18, 2024 10:41
[2024-08-18 11:22] VITALS: BP 128/42; PULSE 62; RESP 16; TEMP 98; O2SAT 94
== END 2024-08-18 12:47 | disposition home or self-care (01) | DRG 150 ==
LOC: ER 11:08 → OVERFLOW 23:19 → TELE-WESTW 08-14 03:50
PROVIDERS: ADMIT Family Medicine; ATTEND Family Medicine
PROC: 06H03DZ Insertion of Intraluminal Device into Inferior Vena Cava, Percutaneous Approach (ICD-10-PCS; principal; 2024-08-16)
DX: R04.0 Epistaxis (principal); I50.33 Acute on chronic diastolic (congestive) heart failure; J96.01 Acute respiratory failure with hypoxia; N39.0 Urinary tract infection, site not specified; Z68.41 Body mass index [BMI] 40.0-44.9, adult; R00.1 Bradycardia, unspecified; I11.0 Hypertensive heart disease with heart failure; Z95.2 Presence of prosthetic heart valve; Z99.81 Dependence on supplemental oxygen; E66.01 Morbid (severe) obesity due to excess calories; J44.9 Chronic obstructive pulmonary disease, unspecified; I71.20 Thoracic aortic aneurysm, without rupture, unspecified; E11.51 Type 2 diabetes mellitus with diabetic peripheral angiopathy without gangrene; Z95.828 Presence of other vascular implants and grafts; E78.00 Pure hypercholesterolemia, unspecified; E87.6 Hypokalemia; M10.9 Gout, unspecified; K21.9 Gastro-esophageal reflux disease without esophagitis; I25.10 Atherosclerotic heart disease of native coronary artery without angina pectoris; I95.9 Hypotension, unspecified; Z86.718 Personal history of other venous thrombosis and embolism; Z82.49 Family history of ischemic heart disease and other diseases of the circulatory system; Z82.3 Family history of stroke; Z79.82 Long term (current) use of aspirin; Z79.01 Long term (current) use of anticoagulants; Z88.8 Allergy status to other drugs, medicaments and biological substances
CPT/HCPCS: 36415; 37619; 71250; 80048; 80053; 81001; 83735; 83880; 84443; 84481; 84484; 85025; 85610; 85730; 87086; 87088; 87186; 93306; 96365; 99152; C1769; C1894; G0378; J2003; J2250; J2405; J3490; Q9967